=== PATIENT | male | born 1935 | race Caucasian/White ===

== ENCOUNTER → 2017-07-26 08:44 | Outpatient (CLI) | payer OTHER, SELFPAY ==
[2017-07-26 12:15] LABS: Absolute Lymphocyte Count 1.98 X10^3/ul (0.83-4.51); Absolute Neutrophil Count 4.4 X10^3/uL (2.0-7.7); Basophil# 0.03 X10^3/uL; Basophil% 0.4 % (0-1); Eosinophil# 0.25 X10^3/uL; Eosinophils% 3.3 % (0-5); Hematocrit 41.2 % (40-54); Hemoglobin 13.9 g/dl (13.0-16.5); Lymphocyte # 1.98 X10^3/ul (4.0); Lymphocyte % 26.5 % (19-41); Mean Corp Hgb Conc 33.7 g/gl (32-36); Mean Corpuscular Hgb 32.1 pg (27.0-32.0); Mean Corpuscular Volume 95.2 fL (80-94); Mean Platelet Vol. 12.8 fl (6.2-12.0); Monocyte# 0.76 X10^3/uL; Monocyte% 10.2 % (0-10); Neutrophil # 4.43 X10^3/uL (2.7-7.7); Neutrophil % 59.3 % (47-70); Platelet Count 154 K/mm3 (150-450); RBC Distribution Width CV 13.1 % (11.6-14.6); Red Blood Count 4.33 M/mm3 (4.6-6.2); White Blood Count 7.5 K/mm3 (4.4-11.0)
[2017-07-26 12:36] LABS: ALB/GLOB Ratio 1.1 RATIO (0.9-2.4); AST(SGOT) 42 U/L (15-37); Alanine Aminotransfer ALT/SGPT 59 U/L (16-61); Albumin, Serum 4.1 g/dL (3.2-5.0); Alkaline Phosphatase 64 U/L (45-117); Anion Gap 13 (5-15); BUN 25 mg/dL (7-18); BUN/Creat Ratio 15.2 RATIO (10-20); Chloride 103 mmol/L (98-107); Creatinine, Serum 1.65 mg/dL (0.70-1.30); EST Glomerular Filtration Rate 43 mL/min (>60); Est Glom Filt Rate - Afr Amer 52 mL/min (>60); Globulin 3.7 g/dL (2.2-4.2); Glucose 92 mg/dL (70-110); Magnesium 1.8 mg/dL (1.6-2.6); Potassium 3.6 mmol/L (3.5-5.1); Protein, Total 7.8 g/dL (6.4-8.2); Sodium Level 139 mmol/L (136-145); T4 Free Direct 0.91 ng/dL (0.76-1.46); Thyroid Stim Hormone (TSH) 1.26 uIU/mL (0.358-3.74); Uric Acid 8.3 mg/dL (3.5-7.2)
[2017-07-26 12:39] LABS: POSITIVE COUNT NO; POSITIVE DIFFERENTIAL NO; POSITIVE MORPHOLOGY NO
== END ==
PROVIDERS: Family Provider Family Medicine; PCP Family Medicine; Visit Provider Family Medicine
DX: I12.9 Hypertensive chronic kidney disease with stage 1 through stage 4 chronic kidney disease, or unspecified chronic kidney disease (principal); N18.9 Chronic kidney disease, unspecified; E79.0 Hyperuricemia without signs of inflammatory arthritis and tophaceous disease; E83.42 Hypomagnesemia
CPT/HCPCS: 36415; 80053; 83735; 84439; 84443; 84550; 85025

== ENCOUNTER → 2017-09-13 15:08 | Outpatient (CLI) | payer OTHER, SELFPAY ==
[2017-09-13 18:11] LABS: Anion Gap 12 (5-15); BUN 46 mg/dL (7-18); BUN/Creat Ratio 19.2 RATIO (10-20); Calcium,Total 8.9 mg/dL (8.5-10.1); Chloride 107 mmol/L (98-107); Creatinine, Serum 2.39 mg/dL (0.70-1.30); EST Glomerular Filtration Rate 28 mL/min (>60); Est Glom Filt Rate - Afr Amer 34 mL/min (>60); Glucose 89 mg/dL (74-106); Potassium 3.4 mmol/L (3.5-5.1); Sodium Level 140 mmol/L (136-145); T4 Free Direct 1.04 ng/dL (0.76-1.46); Thyroid Stim Hormone (TSH) 1.36 uIU/mL (0.358-3.74)
== END ==
PROVIDERS: Family Provider Family Medicine; PCP Family Medicine; Visit Provider Family Medicine
DX: N18.9 Chronic kidney disease, unspecified (principal); G25.2 Other specified forms of tremor
CPT/HCPCS: 36415; 80048; 84439; 84443

== ENCOUNTER → 2017-09-19 15:51 | Outpatient (CLI) | payer OTHER, SELFPAY ==
[2017-09-19 18:08] LABS: Anion Gap 9 (5-15); BUN 39 mg/dL (7-18); Calcium,Total 8.9 mg/dL (8.5-10.1); Chloride 108 mmol/L (98-107); Creatinine, Serum 1.77 mg/dL (0.70-1.30); EST Glomerular Filtration Rate 39 mL/min (>60); Est Glom Filt Rate - Afr Amer 48 mL/min (>60); Glucose 94 mg/dL (74-106); Potassium 3.6 mmol/L (3.5-5.1); Sodium Level 140 mmol/L (136-145)
== END ==
PROVIDERS: Family Provider Family Medicine; PCP Family Medicine; Visit Provider Family Medicine
DX: E83.42 Hypomagnesemia (principal); R19.7 Diarrhea, unspecified; E79.0 Hyperuricemia without signs of inflammatory arthritis and tophaceous disease
CPT/HCPCS: 36415; 80048

== ENCOUNTER → 2017-10-21 15:11 | Outpatient (CLI) | payer OTHER, SELFPAY ==
[2017-10-21 18:08] LABS: Vitamin B12 508 pg/mL (211-911)
[2017-10-21 18:10] LABS: Erythrocyte Sedimentation Rate 12 mm/hr (0-20)
[2017-10-21 18:48] LABS: Anion Gap 9 (5-15); BUN 24 mg/dL (7-18); BUN/Creat Ratio 14.6 RATIO (10-20); Calcium,Total 8.8 mg/dL (8.5-10.1); Chloride 105 mmol/L (98-107); Creatinine, Serum 1.64 mg/dL (0.70-1.30); EST Glomerular Filtration Rate 43 mL/min (>60); Est Glom Filt Rate - Afr Amer 52 mL/min (>60); Glucose 87 mg/dL (74-106); Magnesium 1.5 mg/dL (1.6-2.6); Potassium 3.6 mmol/L (3.5-5.1); Rheumatoid Factor < 10.0 IU/mL (<15); Sodium Level 137 mmol/L (136-145); Thyroid Stim Hormone (TSH) 1.71 uIU/mL (0.358-3.74)
[2017-10-21 19:55] LABS: Hemoglobin A1c 5.4 % (4.2-6.3)
[2017-10-23 12:08] LABS: RNP Ab 0.3 AI (0.0-0.9); Smith Ab <0.2 AI (0.0-0.9)
[2017-10-23 20:08] LABS: PROEL- A/G Ratio 1.3 (0.7-1.7); PROEL- Albumin 3.8 g/dL (2.9-4.4); PROEL- Alpha-1 Globulin 0.1 g/dL (0.0-0.4); PROEL- Alpha-2 Globulin 0.9 g/dL (0.4-1.0); PROEL- Beta Globulin 1.1 g/dL (0.7-1.3); PROEL- Gamma Globulin 0.8 g/dL (0.4-1.8); PROEL- Globulin, Total 2.9 g/dL (2.2-3.9); PROEL- TOTAL PROTEIN 6.7 g/dL (6.0-8.5)
[2017-10-24 12:24] LABS: ANTINUCLEAR ANTIBODIES DIRECT Negative (Negative)
[2017-10-24 12:25] LABS: Hep C Antibodies <0.1 s/co ratio (0.0-0.9)
== END ==
PROVIDERS: Family Provider Family Medicine; PCP Family Medicine; Visit Provider Psychiatry & Neurology Neurology
DX: N18.9 Chronic kidney disease, unspecified (principal); R20.1 Hypoesthesia of skin; R41.3 Other amnesia; T57 Toxic effect of other inorganic substances
CPT/HCPCS: 36415; 80048; 82607; 82746; 83036; 83735; 84165; 84443; 85652; 86038; 86235; 86431; 86803

== ENCOUNTER → 2017-10-30 14:42 | Outpatient (CLI) | payer MEDICARE, SELFPAY ==
--- NOTE | 2017-10-30 14:46 | CT_ITS ---
STUDY: CT BRAIN WITHOUT CONTRAST REASON FOR EXAM: Male, 82 years old. Memory loss RADIATION DOSAGE (If Supplied By Facility): CTDIvol = ( 60.81 ) mGy, DLP = ( 1158.30 ) mGycm TECHNIQUE: Transaxial CT imaging of the brain was performed without administration of intravenous contrast material. Individualized dose optimization techniques were used for this CT. COMPARISON: June 02, 2009 FINDINGS: The soft tissues are unremarkable. The osseous structures are unremarkable. There is mild cerebral atrophy with widening of the extra-axial spaces and ventricular dilatation. There are scattered areas of decreased attenuation within the white matter tracts of the supratentorial brain. The basal ganglia and thalami are unremarkable. No abnormalities are seen in the brainstem. The cerebellum is unremarkable. There are moderate vascular calcifications. There is no intracranial hemorrhage. There are no findings of acute ischemia. The visualized sinuses are unremarkable. CT/Brain/Head without Contrast IMPRESSION: No acute intracranial abnormalities. There are scattered white matter changes likely representing microvascular disease. Underlying dementia may be present. Electronically Signed: Maria A Merrill MD at 23:42 EDT Tel Direct: [phone], Service support ,
== END ==
PROVIDERS: Family Provider Family Medicine; PCP Family Medicine; Visit Provider Psychiatry & Neurology Neurology
DX: R41.3 Other amnesia (principal)
CPT/HCPCS: 70450

== ENCOUNTER → 2018-07-29 14:19 | Outpatient (CLI) | payer MEDICARE, SELFPAY ==
--- NOTE | 2018-07-29 14:45 | RAD_ITS ---
STUDY: X-RAY - LUMBAR SPINE REASON FOR EXAM: Male, 82 years old. Bilateral leg tingling and numbness. TECHNIQUE: 5 view(s) of the lumbar spine were obtained. COMPARISON: None FINDINGS: Normal lumbar lordosis. There is no substantial scoliosis. There is minimal retrolisthesis of L2 over L3 and L3 over L4. There is minimal decrease height of L1 1 and T12 vertebrae. Normal disc space heights. There is no demonstrated fracture. There is no demonstrated spondylolysis of the pars interarticulares. There is atherosclerotic calcification of the abdominal aorta without a demonstrated aneurysm. RAD/L/S Spine Min 4 Views IMPRESSION: Degenerative changes of the spine, as detailed above. Electronically Signed: Chris Segura MD at 8:36 EST Tel , Service support ,
[2018-07-29 18:05] LABS: ALB/GLOB Ratio 1.1 RATIO (0.9-2.4); AST(SGOT) 63 U/L (15-37); Alanine Aminotransfer ALT/SGPT 70 U/L (16-61); Albumin, Serum 3.8 g/dL (3.2-5.0); Alkaline Phosphatase 72 U/L (45-117); Anion Gap 9 (5-15); BUN 31 mg/dL (7-18); BUN/Creat Ratio 15.3 RATIO (10-20); Calcium,Total 8.8 mg/dL (8.5-10.1); Chloride 108 mmol/L (98-107); Creatinine, Serum 2.02 mg/dL (0.70-1.30); EST Glomerular Filtration Rate 34 mL/min (>60); Est Glom Filt Rate - Afr Amer 41 mL/min (>60); Globulin 3.5 g/dL (2.2-4.2); Glucose 93 mg/dL (74-106); Protein, Total 7.3 g/dL (6.4-8.2); Sodium Level 140 mmol/L (136-145); Thyroid Stim Hormone (TSH) 0.97 uIU/mL (0.358-3.74)
== END ==
PROVIDERS: Family Provider Family Medicine; PCP Family Medicine; Referring Provider Family Medicine; Visit Provider Family Medicine
DX: R60.9 Edema, unspecified (principal); G25.0 Essential tremor; M54.16 Radiculopathy, lumbar region
CPT/HCPCS: 36415; 72110; 80053; 84443

== ENCOUNTER → 2018-08-04 13:06 | Outpatient (CLI) | payer MEDICARE, SELFPAY ==
[2018-08-04 16:23] LABS: ALB/GLOB Ratio 1.1 RATIO (0.9-2.4); AST(SGOT) 64 U/L (15-37); Alanine Aminotransfer ALT/SGPT 76 U/L (16-61); Albumin, Serum 3.8 g/dL (3.2-5.0); Alkaline Phosphatase 71 U/L (45-117); Anion Gap 12 (5-15); BUN 31 mg/dL (7-18); Chloride 106 mmol/L (98-107); Creatinine, Serum 1.94 mg/dL (0.70-1.30); EST Glomerular Filtration Rate 35 mL/min (>60); Est Glom Filt Rate - Afr Amer 43 mL/min (>60); Globulin 3.4 g/dL (2.2-4.2); Glucose 89 mg/dL (74-106); Potassium 3.3 mmol/L (3.5-5.1); Protein, Total 7.2 g/dL (6.4-8.2); Sodium Level 143 mmol/L (136-145)
== END ==
LOC: LAB.FUTURE 06-10 03:25 → BFHLAB 01-06 09:41
PROVIDERS: Family Provider Family Medicine; PCP Family Medicine; Visit Provider Family Medicine
DX: R60.9 Edema, unspecified (principal); R94.5 Abnormal results of liver function studies; N18.9 Chronic kidney disease, unspecified
CPT/HCPCS: 36415; 80053

== ENCOUNTER 2018-12-05 11:28 | Emergency (ER) | payer MEDICARE, SELFPAY ==
[2018-12-05 11:29] VITALS: BP 156/79; PULSE 78; RESP 16; TEMP 36.9; O2SAT 95; BMI 30.1
--- NOTE | 2018-12-05 11:40 | ED.VIS.GEN ---
History of Present Illness Chief Complaint: Upper Extremity Injury Informant: Patient Onset: Today Narrative: Bomis-ebar-wwsdobrf, left thumb injury 20 minutes prior to arrival. Using a drill press with the rubber piece, finger pulled in. Tetanus more than 10 years. Baby aspirin daily. No history of similar. No paresthesias. Prior similar symptoms: No Past Medical History - Allergies and Home Meds Allergies/Adverse Reactions: Allergies No Known Allergies Allergy (Verified 12/05/18 11:31) Primary Care Physician: Mike Currie MD [Primary Care Provider] - Smoking Status: Never smoker Review of Systems All systems negative except as indicated Skin: Reports: Wounds Neurological: Denies: Numbness Physical Exam Vital Signs/Narrative: Vital Signs Temp Pulse Resp BP Pulse Ox 12/05/18 11:29 98.5 F 78 16 156/79 H 95 Inital Vital Signs reviewed: Yes General: Well nourished, Well developed, No Acute Distress Head: Normocephalic, Atraumatic ENT: Moist mucous membranes, No rhinorrhea Cardiovascular: Regular rate, Regular rhythm, No murmurs Respiratory: No distress, CTA bilaterally, Chest nontender Abdomen: Soft, Nontender, Nondistended, Normal bowel sounds Extremities: - - Left hand: Thumb examination noted missing distal aspect of the nail there is skin avulsion ulnar aspect distal tip of the finger, brisk bleeding, no bony exposure. No joint involvement. Slightly tender to palpation. Diagnostic/Tx/Re-eval Left thumb: No fracture or dislocation - Medical Decision Making Due to bleeding and tenderness, LET ointment was placed over the wound. Patient tetanus was updated. X-ray obtained reviewed by myself notes no acute bony process. Reevaluation after x-ray, bleeding controlled with ointment. Wound reevaluated, there was no laceration requiring suturing. Secondary to avulsion with initial bleeding, discussed placing silver nitrate to help with continued cauterization. Patient agreed. Performed 1 thin layer over wound with no complications. Wound care discussed with the patient. There was no subungual hematoma of the remaining nail. Patient will follow with PCP for reevaluation. ED Disposition - Plan for ED Patient: Disposition: Home or Assisted Living Diagnosis: Nailbed avulsion, Tetanus toxoid vaccination administered at current visit Instructions: ED Avulsion Nail Partial, Wound Care Referrals: Mike Currie MD [Primary Care Provider] - 1 Week Additional Instructions: Status post cauterization of partial avulsion.
[2018-12-05] MEDS: Diphth,Pertuss(Acell),Tet Vac 0.5 ML Vial IM (11:51)
--- NOTE | 2018-12-05 12:00 | RAD_ITS ---
STUDY: X-RAY - LEFT HAND, ATTENTION 1 FINGER REASON FOR EXAM: Male, 83 years old. Injury, pain TECHNIQUE: 3 view(s) of the finger were obtained. COMPARISON: None. FINDINGS: Normal metacarpal head. Normal metacarpophalangeal joint. Normal proximal phalanx. Normal middle phalanx. Normal distal phalanx. Normal proximal interphalangeal joint. Normal distal interphalangeal joint. Defect of the distal soft tissues consistent with laceration. No radiopaque foreign body. RAD/Finger(s) Min 2 Views IMPRESSION: Distal laceration but no fracture, dislocation, radiopaque foreign body. Electronically Signed: Merlin Burnett MD at 12:28 EDT Tel , Service support ,
[2018-12-05 12:34] VITALS: BP 121/67; PULSE 67; RESP 16; O2SAT 95
--- NOTE | 2018-12-05 12:35 | ED.RN ---
DISCHARGE INSTRUCTIONS GIVEN TO AND REVIEWED WITH PATIENT, PATIENT DENIES QUESTIONS OR CONCERNS AND VOICES UNDERSTANDING OF DISCHARGE INSTRUCTIONS. PT AMBULATES OUT OF ROOM WITHOUT DIFFICULTY.
== END 2018-12-05 12:41 | disposition home or self-care (01) ==
PROVIDERS: Emergency Provider Emergency Medicine; Family Provider Family Medicine; PCP Family Medicine
DX: S61.102A Unspecified open wound of left thumb with damage to nail, initial encounter (principal); Z23 Encounter for immunization; W31.89XA Contact with other specified machinery, initial encounter; Y93.89 Activity, other specified; Y92.009 Unspecified place in unspecified non-institutional (private) residence as the place of occurrence of the external cause; Y99.8 Other external cause status
CPT/HCPCS: 73140; 90471; 90715; 99282

== ENCOUNTER → 2019-04-06 | Outpatient (CLI) | payer MEDICARE, SELFPAY ==
[2019-04-06 12:38] LABS: AST(SGOT) 50 U/L (15-37); Absolute Lymphocyte Count 1.38 X10^3/uL (0.83-4.51); Absolute Neutrophil Count 3.2 X10^3/uL (2.0-7.7); Alanine Aminotransfer ALT/SGPT 59 U/L (16-61); Albumin, Serum 3.7 g/dL (3.2-5.0); Alkaline Phosphatase 73 U/L (45-117); Anion Gap 8 (5-15); BUN 24 mg/dL (7-18); BUN/Creat Ratio 13.3 RATIO (10-20); Basophil# 0.05 X10^3/uL; Basophil% 0.9 % (0-1); Calcium,Total 9.4 mg/dL (8.5-10.1); Chloride 105 mmol/L (98-107); Creatinine, Serum 1.81 mg/dL (0.70-1.30); EST Glomerular Filtration Rate 38 mL/min (>60); Eosinophil# 0.17 X10^3/uL; Eosinophils% 3.2 % (0-5); Est Glom Filt Rate - Afr Amer 46 mL/min (>60); Globulin 3.7 g/dL (2.2-4.2); Glucose 100 mg/dL (74-106); Hematocrit 40.4 % (40-54); Hemoglobin 13.7 g/dL (13.0-16.5); Lymphocyte # 1.38 X10^3/ul (4.0); Lymphocyte % 25.9 % (19-41); Magnesium 1.4 mg/dL (1.6-2.6); Mean Corp Hgb Conc 33.9 g/dL (32-36); Mean Corpuscular Hgb 32.4 pg (27.0-32.0); Mean Corpuscular Volume 95.5 fL (80-94); Mean Platelet Vol. 12.6 fl (6.2-12.0); Monocyte# 0.55 X10^3/uL; Monocyte% 10.3 % (0-10); NRBC Flagged by Analyzer 0 % (0-5); Neutrophil # 3.15 X10^3/uL (2.7-7.7); Neutrophil % 59.3 % (47-70); Platelet Count 132 K/mm3 (150-450); Potassium 3.5 mmol/L (3.5-5.1); Protein, Total 7.4 g/dL (6.4-8.2); RBC Distribution Width CV 12.4 % (11.6-14.6); RBC Distribution Width SD 43.8 fl (35.1-43.9); Red Blood Count 4.23 M/mm3 (4.6-6.2); Sodium Level 138 mmol/L (136-145); T4 Free Direct 0.74 ng/dL (0.76-1.46); Thyroid Stim Hormone (TSH) 2.19 uIU/mL (0.358-3.74); Uric Acid 8.7 mg/dL (3.5-7.2); White Blood Count 5.3 K/mm3 (4.4-11.0)
[2019-04-06 12:48] LABS: Hemoglobin A1c 5.4 % (4.2-6.3)
== END | disposition home or self-care (01) ==
LOC: BFHLAB 09:21
PROVIDERS: Family Provider Family Medicine; PCP Family Medicine; Visit Provider Family Medicine
DX: E78.5 Hyperlipidemia, unspecified (principal); I10 Essential (primary) hypertension; E79.0 Hyperuricemia without signs of inflammatory arthritis and tophaceous disease; F32.9 Major depressive disorder, single episode, unspecified; R73.01 Impaired fasting glucose
CPT/HCPCS: 36415; 80053; 83036; 83735; 84439; 84443; 84550; 85025

== ENCOUNTER → 2020-01-06 | Outpatient (CLI) | payer MEDICARE, SELFPAY ==
[2020-01-06 12:53] LABS: Absolute Lymphocyte Count 1.55 X10^3/uL (0.83-4.51); Absolute Neutrophil Count 3.8 X10^3/uL (2.0-7.7); Basophil# 0.04 X10^3/uL; Basophil% 0.6 % (0-1); Eosinophil# 0.23 X10^3/uL; Eosinophils% 3.7 % (0-5); Hematocrit 37.8 % (40-54); Hemoglobin 12.8 g/dL (13.0-16.5); Lymphocyte # 1.55 X10^3/ul (4.0); Lymphocyte % 24.8 % (19-41); Mean Corp Hgb Conc 33.9 g/dL (32-36); Mean Corpuscular Hgb 32.5 pg (27.0-32.0); Mean Corpuscular Volume 95.9 fL (80-94); Mean Platelet Vol. 12.5 fl (6.2-12.0); Monocyte# 0.66 X10^3/uL; Monocyte% 10.5 % (0-10); NRBC Flagged by Analyzer 0 % (0-5); Neutrophil # 3.76 X10^3/uL (2.7-7.7); Neutrophil % 60.1 % (47-70); Platelet Count 146 K/mm3 (150-450); RBC Distribution Width CV 13.2 % (11.6-14.6); Red Blood Count 3.94 M/mm3 (4.6-6.2); White Blood Count 6.3 K/mm3 (4.4-11.0)
[2020-01-06 13:25] LABS: AST(SGOT) 35 U/L (15-37); Alanine Aminotransfer ALT/SGPT 45 U/L (16-61); Albumin, Serum 3.6 g/dL (3.2-5.0); Alkaline Phosphatase 70 U/L (45-117); Anion Gap 10 (5-15); BUN 27 mg/dL (7-18); BUN/Creat Ratio 14.4 RATIO (10-20); Calcium,Total 8.8 mg/dL (8.5-10.1); Chloride 105 mmol/L (98-107); Creatinine, Serum 1.87 mg/dL (0.70-1.30); EST Glomerular Filtration Rate 37 mL/min (>60); Est Glom Filt Rate - Afr Amer 45 mL/min (>60); Globulin 3.7 g/dL (2.2-4.2); Glucose 107 mg/dL (74-106); Magnesium 1.5 mg/dL (1.6-2.6); Potassium 3.2 mmol/L (3.5-5.1); Protein, Total 7.3 g/dL (6.4-8.2); Sodium Level 138 mmol/L (136-145); T4 Free Direct 0.94 ng/dL (0.76-1.46); Thyroid Stim Hormone (TSH) 1.44 uIU/mL (0.358-3.74)
== END | disposition home or self-care (01) ==
LOC: BFHLAB 09:21
PROVIDERS: Family Provider Family Medicine; PCP Family Medicine; Visit Provider Family Medicine
DX: I10 Essential (primary) hypertension (principal); R53.83 Other fatigue; E78.5 Hyperlipidemia, unspecified; E83.42 Hypomagnesemia; E79.0 Hyperuricemia without signs of inflammatory arthritis and tophaceous disease
CPT/HCPCS: 36415; 80053; 83735; 84439; 84443; 84481; 84550; 85025

== ENCOUNTER → 2020-07-22 15:01 | Outpatient (CLI) | payer MEDICARE, SELFPAY ==
[2020-07-22 17:21] LABS: Absolute Lymphocyte Count 1.86 X10^3/uL (0.83-4.51); Absolute Neutrophil Count 3.5 X10^3/uL (2.0-7.7); Basophil# 0.06 X10^3/uL; Basophil% 0.9 % (0-1); Eosinophil# 0.21 X10^3/uL; Eosinophils% 3.3 % (0-5); Hematocrit 40.1 % (40-54); Hemoglobin 13.5 g/dL (13.0-16.5); Lymphocyte # 1.86 X10^3/ul (4.0); Lymphocyte % 29.4 % (19-41); Mean Corp Hgb Conc 33.7 g/dL (32-36); Mean Corpuscular Hgb 32.1 pg (27.0-32.0); Mean Corpuscular Volume 95.5 fL (80-94); Mean Platelet Vol. 12.4 fl (6.2-12.0); Monocyte# 0.72 X10^3/uL; Monocyte% 11.4 % (0-10); NRBC Flagged by Analyzer 0 % (0-5); Neutrophil # 3.45 X10^3/uL (2.7-7.7); Neutrophil % 54.5 % (47-70); Platelet Count 152 K/mm3 (150-450); RBC Distribution Width CV 12.8 % (11.6-14.6); White Blood Count 6.3 K/mm3 (4.4-11.0)
[2020-07-22 17:56] LABS: Anion Gap 7 (5-15); BUN 27 mg/dL (7-18); BUN/Creat Ratio 15.7 RATIO (10-20); Chloride 107 mmol/L (98-107); Creatinine, Serum 1.72 mg/dL (0.70-1.30); EST Glomerular Filtration Rate 41 mL/min (>60); Est Glom Filt Rate - Afr Amer 49 mL/min (>60); Glucose 122 mg/dL (74-106); Potassium 3.7 mmol/L (3.5-5.1); Sodium Level 139 mmol/L (136-145); Thyroid Stim Hormone (TSH) 0.87 uIU/mL (0.358-3.74)
== END ==
PROVIDERS: PCP Family Medicine; Visit Provider Family Medicine
DX: D69.6 Thrombocytopenia, unspecified (principal); R73.01 Impaired fasting glucose; I12.9 Hypertensive chronic kidney disease with stage 1 through stage 4 chronic kidney disease, or unspecified chronic kidney disease; N18.9 Chronic kidney disease, unspecified
CPT/HCPCS: 36415; 80048; 84443; 85025

== ENCOUNTER → 2021-01-16 11:12 | Outpatient (CLI) | payer MEDICARE, SELFPAY ==
[2021-01-16 12:18] LABS: Absolute Lymphocyte Count 1.74 X10^3/uL (0.83-4.51); Absolute Neutrophil Count 4.2 X10^3/uL (2.0-7.7); Basophil# 0.05 X10^3/uL; Basophil% 0.7 % (0-1); Eosinophil# 0.15 X10^3/uL; Eosinophils% 2.2 % (0-5); Hematocrit 40.6 % (40-54); Hemoglobin 13.8 g/dL (13.0-16.5); Lymphocyte # 1.74 X10^3/ul (0.83-4.51); Lymphocyte % 25.7 % (19-41); Mean Corpuscular Hgb 31.8 pg (27.0-32.0); Mean Corpuscular Volume 93.5 fL (80-94); Mean Platelet Vol. 12.6 fl (6.2-12.0); Monocyte# 0.61 X10^3/uL; NRBC Flagged by Analyzer 0 % (0-5); Neutrophil # 4.18 X10^3/uL (2.7-7.7); Platelet Count 157 K/mm3 (150-450); RBC Distribution Width CV 12.9 % (11.6-14.6); RBC Distribution Width SD 44.7 fl (35.1-43.9); Red Blood Count 4.34 M/mm3 (4.6-6.2); White Blood Count 6.8 K/mm3 (4.4-11.0)
[2021-01-16 13:09] LABS: ALB/GLOB Ratio 1.1 RATIO (0.9-2.4); AST(SGOT) 38 U/L (15-37); Alanine Aminotransfer ALT/SGPT 42 U/L (16-61); Albumin, Serum 3.9 g/dL (3.2-5.0); Alkaline Phosphatase 67 U/L (45-117); Anion Gap 9 (5-15); BUN 22 mg/dL (7-18); BUN/Creat Ratio 13.3 RATIO (10-20); Calcium,Total 8.7 mg/dL (8.5-10.1); Chloride 105 mmol/L (98-107); Cholesterol 148 mg/dL (200); Creatinine, Serum 1.66 mg/dL (0.70-1.30); EST Glomerular Filtration Rate 42 mL/min (>60); Est Glom Filt Rate - Afr Amer 51 mL/min (>60); Globulin 3.5 g/dL (2.2-4.2); Glucose 100 mg/dL (74-106); High Density Lipoprotein 39 mg/dL; Magnesium 1.7 mg/dL (1.6-2.6); Potassium 3.6 mmol/L (3.5-5.1); Protein, Total 7.4 g/dL (6.4-8.2); Sodium Level 139 mmol/L (136-145); Thyroid Stim Hormone (TSH) 1.76 uIU/mL (0.358-3.74); Triglycerides 316 mg/dL; Very Low Density Lipoprotein 63 mg/dL (5-40)
== END ==
PROVIDERS: PCP Family Medicine; Referring Provider Family Medicine; Visit Provider Family Medicine
DX: N18.9 Chronic kidney disease, unspecified (principal); D69.6 Thrombocytopenia, unspecified; E83.42 Hypomagnesemia; E78.5 Hyperlipidemia, unspecified
CPT/HCPCS: 36415; 80053; 80061; 83735; 84443; 85025

== ENCOUNTER → 2022-04-11 | Outpatient (CLI) | payer MEDICARE, SELFPAY ==
[2022-04-11 12:29] LABS: Absolute Lymphocyte Count 1.56 X10^3/uL (0.83-4.51); Absolute Neutrophil Count 4.3 X10^3/uL (2.0-7.7); Basophil# 0.04 X10^3/uL; Basophil% 0.6 % (0-1); Eosinophil# 0.19 X10^3/uL; Eosinophils% 2.8 % (0-5); Hematocrit 39.2 % (40-54); Hemoglobin 13.5 g/dL (13.0-16.5); Lymphocyte # 1.56 X10^3/ul (0.83-4.51); Lymphocyte % 23.1 % (19-41); Mean Corp Hgb Conc 34.4 g/dL (32-36); Mean Corpuscular Hgb 32.1 pg (27.0-32.0); Mean Corpuscular Volume 93.3 fL (80-94); Mean Platelet Vol. 12.1 fl (6.2-12.0); Monocyte# 0.66 X10^3/uL; Monocyte% 9.8 % (0-10); NRBC Flagged by Analyzer 0 % (0-5); Neutrophil # 4.27 X10^3/uL (2.7-7.7); Neutrophil % 63.1 % (47-70); Platelet Count 142 K/mm3 (150-450); RBC Distribution Width SD 43.9 fl (35.1-43.9); White Blood Count 6.8 K/mm3 (4.4-11.0)
[2022-04-11 12:44] LABS: AST(SGOT) 26 U/L (15-37); Alanine Aminotransfer ALT/SGPT 30 U/L (16-61); Albumin, Serum 3.7 g/dL (3.2-5.0); Alkaline Phosphatase 66 U/L (45-117); Anion Gap 10 (5-15); BUN 23 mg/dL (7-18); BUN/Creat Ratio 12.2 RATIO (10-20); Calcium,Total 9.1 mg/dL (8.5-10.1); Chloride 106 mmol/L (98-107); Cholesterol 112 mg/dL (200); Creatinine, Serum 1.88 mg/dL (0.70-1.30); EST Glomerular Filtration Rate 36 mL/min (>60); Est Glom Filt Rate - Afr Amer 44 mL/min (>60); Globulin 3.6 g/dL (2.2-4.2); Glucose 106 mg/dL (74-106); High Density Lipoprotein 39 mg/dL; Magnesium 1.5 mg/dL (1.6-2.6); Potassium 3.6 mmol/L (3.5-5.1); Protein, Total 7.3 g/dL (6.4-8.2); Sodium Level 140 mmol/L (136-145); Triglycerides 227 mg/dL; Very Low Density Lipoprotein 45 mg/dL (5-40)
== END | disposition home or self-care (01) ==
LOC: BFHLAB 09:31
PROVIDERS: PCP Family Medicine; Visit Provider Family Medicine
DX: E78.5 Hyperlipidemia, unspecified (principal); D69.9 Hemorrhagic condition, unspecified; I10 Essential (primary) hypertension
CPT/HCPCS: 36415; 80053; 80061; 83735; 85025

== ENCOUNTER → 2022-05-21 | Outpatient (CLI) | payer MEDICARE, SELFPAY | END | disposition home or self-care (01) | LOC: LAB 10:16 | PROVIDERS: PCP Family Medicine; Referring Provider Urology; Visit Provider Urology | DX: N40.3 Nodular prostate with lower urinary tract symptoms (principal) | CPT/HCPCS: 36415; 84153 ==

== ENCOUNTER 2022-06-20 13:07 | Observation (INO) | payer MEDICARE, SELFPAY ==
[2022-06-20] VITALS (17 sets, daily range): BP systolic 107–174; BP diastolic 55–85; PULSE 66–91; RESP 16–18; TEMP 36.3–37; O2SAT 91–98; BMI 32.8
--- NOTE | 2022-06-20 | IMM_PTH ---
PATIENT: TRISTON OSORIO Jr. LOC: MS3 U#:[id number] AGE/SX: 86/M ROOM: [facility] [place] RE06/20/[address]: Dr. Dylan Hein MD : 1935 BED: 1 DIS: 06/21/2022 SPEC #: [id number] RECD: 06/22/22 12:41 STATUS: MICHAEL RELiz #: [id number] MATTHEW: 06/20/22 00:[address]: Dylan Hein DEPT: IMMUNOHISTOCHEMISTRY RECD BY: Nori Gallegos ENTERED: 06/22/22 12:43 SP TYPE: IMMUNO OTHR DR: Dr. Mike Currie MD Tissues: G - Prostate, NOS Procedures: CK20 (add) CK5-6 (add) CK7 (add) CK8 (add) Pankeratin (initial) P40 (add) CD44 (add) PSAP (add) PHYSICIAN & INSTITUTION [place] [id number] SPECIMEN INFORMATION: Tissue Source: G - Prostate and bladder tissue, transurethral resection Clinical Info: BPH, elevated PSA Specimen Number: [id number] G4 CPT code: 70703, 35664 x7 METHODOLOGY: Deparaffinized sections of prefer/formalin-fixed tissue or PAP/DQ stained slides are incubated with monoclonal/polyclonal antibodies/oligonucleotide probes. Localization is made via biotin free immunoperoxidase method. Appropriate controls are performed and reacted as expected. Results on target cell population are indicated in the following table: RESULTS: ANTIBODY / CLONE RESULT Block G4 AE1-3 (AE1/AE3/PCK26) positive CK7 (OV-TL12/30) negative CK8 (77jjbrU39) positive CK20 (KS20.8) negative PSAP (PASE/4LJ) positive anti-CD44 (SP37) positive, focal CK5-6 (D5 & 1684) negative P40 (BC28) negative These tests were developed and their performance characteristics determined by [facility]. They may not have been cleared or approved by the U.S. Food and Drug Administration. The FDA has determined that such clearance or approval is not necessary. The above immunohistochemical/dualISH markers are ordered and reviewed by the Pathologist. INTERPRETATION: G. Prostate and bladder tissue, transurethral resection: Prostatic adenocarcinoma. SJ:davy 06/27/2022 Case has been reviewed in consultation with Dr. Martin who concurs with the above diagnosis. IDC:AM
[2022-06-20] MEDS: Lactated Ringers 1,000 ML 15 ML IV ×2 (09:57→15:47)
--- NOTE | 2022-06-20 11:03 | US_ITS ---
STUDY: ULTRASOUND GUIDED PROSTATE BIOPSY. REASON FOR EXAM: Male, 86 years old. US GUIDED PROSTATE BX TECHNIQUE: 11 grayscale transrectal intraoperative ultrasound images from prostate biopsy were submitted for assessment. FINDINGS: Images from patient''s ultrasound-guided prostate biopsy were submitted for interpretation. Please note that biopsy was performed by urology and I was not present for the procedure. Prostate measurements: 4.1 x 4.0 x 3.6 cm (width, length, height). Prostate volume: 30.6 mL An 18-gauge biopsy needle was utilized per tech note. A total of 6 samples were obtained per region. US/Intraoperative Ultrasound IMPRESSION: Ultrasound guided prostate biopsy. Please see intraoperative report for additional findings. Electronically Signed: Johnnie Cavazos, at 13:18 EST ,
--- NOTE | 2022-06-20 11:25 | PROSBIL_PTH ---
PATIENT: TRISTON OSORIO Jr. LOC: MS3 U#:[id number] AGE/SX: 86/M [place] [facility] [place]06/20/[address]: Dr. Dylan Hein MD : 1935 BED: 1 DIS: 06/21/2022 SPEC #: [id number] RECD: 06/20/22 16:36 STATUS: MICHAEL GOMES #: [id number] MATTHEW: 06/20/22 11:[address]: Dylan Hein DEPT: SURGICAL PATHOLOGY RECD BY: Leydi Smith ENTERED: 06/21/22 10:21 SP TYPE: PROST BX OTHR DR: Dr. Mike Currie MD Tissues: A - PROSTATE LEFT B - PROSTATE LEFT C - PROSTATE LEFT D - PROSTATE RIGHT E - PROSTATE RIGHT F - PROSTATE RIGHT G - Prostate, NOS Procedures: PROSTATE BX Surgery Specimen Level IV HEADER OPERATION: Cysto, TUR prostate, Olympus PRE-OP DIAGNOSIS: BPH, elevated PSA TISSUE SUBMITTED: A - Left base, B - Left middle, C - Left apex, D - Right base, E - Right middle, F - Right apex, G - Bladder and prostate tissue MICROSCOPIC DIAGNOSIS A. Left prostate, base, core biopsy: Prostatic adenocarcinoma. Palermo grade: 4+3=7 Number of cores involved: 1/1 Proportion of tissue involved: ~90% Perineural invasion: Present, focal. Greatest tumor length: 1.1 cm B. Left prostate, middle, core biopsy: Prostatic adenocarcinoma. Mark grade: 3+4=7 Number of cores involved: 1/1 Proportion of tissue involved: 75% Perineural invasion: Present, focal. Greatest tumor length: 0.9 cm C. Left prostate, apex, core biopsy: Prostatic adenocarcinoma. Palermo grade: 3+3=6 Number of cores involved: 1/1 Proportion of tissue involved: ~25% Perineural invasion: Present, focal. Greatest tumor length: 0.3 cm D. Right prostate, base, core biopsy: Prostatic adenocarcinoma. Mark grade: 3+4=7 Number of cores involved: 1/1 Proportion of tissue involved: 100% Perineural invasion: Present, frequent. Greatest tumor length: 1.2 cm E. Right prostate, middle, core biopsy: Prostatic adenocarcinoma. Mark grade: 4+3=7 Number of cores involved: 1/1 Proportion of tissue involved: ~80% Perineural invasion: Present, focal. Greatest tumor length: 1.2 cm F. Right prostate, apex, core biopsy: Prostatic adenocarcinoma. Palermo grade: 4+3=7 Number of cores involved: 1/1 Proportion of tissue involved: >95% Perineural invasion: Present, focal. Greatest tumor length: 1.4 cm G. Prostate and bladder tissue, transurethral resection: Prostatic adenocarcinoma See cancer summary in the comment section. SJ:davy 06/22/2022 COMMENT PROSTATE CANCER (TUR) SUMMARY: Procedure - transurethral resection of prostate and bladder Specimen size ? acinar adenocarcinoma Histologic type ? grade group 5 (Palermo score 5+4=9) Tertiary pattern ? Mark grade 3 is also noted. Tumor Quantitation (TUR specimens): Estimated percentage of prostatic tissue involved by tumor - ~20% Periprostatic fat invasion ? not applicable Seminal vesicle invasion - not applicable Lymphvascular invasion ? not present Perineural invasion ? not identified Additional pathologic findings ? benign prostatic hyperplasia. Treatment effect - not applicable The above summary is in compliance with [employer] [place] [employer] (CAP) Cancer Protocols Checklist and [place] Joint Committee on Cancer (AJCC), Staging Manual, 8th Ed. Immunohistochemistry ([id number]) supports the above diagnosis. Case has been reviewed in consultation with Dr. Martin who concurs with the above diagnosis. IDC:AM MICROSCOPIC DESCRIPTION Slides are reviewed. GROSS DESCRIPTION A - Received is one container designated prostate, left base. The specimen consists of one elongated fragment of light carrasco-white soft tissue measuring 1.5 cm in length and 0.1 cm in diameter. The specimen is totally submitted in one cassette. B - Received is one container designated prostate, left middle. The specimen consists of one elongated fragment of light carrasco-white soft tissue measuring 1.5 cm in length and 0.1 cm in diameter. The specimen is totally submitted in one cassette. C - Received is one container designated prostate, left apex. The specimen consists of one elongated fragment of light carrasco-white soft tissue measuring 1 cm in length and 0.1 cm in diameter. The specimen is totally submitted in one cassette. D - Received is one container designated prostate, right base. The specimen consists of one elongated fragment of light carrasco-white soft tissue measuring 1.5 cm in length and 0.1 cm in diameter. The specimen is totally submitted in one cassette. E - Received is one container designated prostate, right middle. The specimen consists of one elongated fragment of light carrasco-white soft tissue measuring 1.5 cm in length and 0.1 cm in diameter. The specimen is totally submitted in one cassette. F - Received is one container designated prostate, right apex. The specimen consists of one elongated fragment of light carrasco-white soft tissue measuring 1.5 cm in length and 0.1 cm in diameter. The specimen is totally submitted in one cassette. G - Received is one container labeled with the patient's name and designated prostate and bladder tissue. The specimen consists of multiple irregular fragments of pink-carrasco, rubbery, soft tissue that in aggregate weigh 7.3 gm and measure in aggregate 5 x 5 x 0.6 cm. The entire specimen is submitted in six cassettes. / AM:davy 06/21/2022 TC:0 CPT: 51623, G0146
[2022-06-20] MEDS: Cefazolin 2 GM in 0.9% Normal Saline 100 ML IV (11:55)
--- NOTE | 2022-06-20 13:12 | OP.PCM_ITS ---
Report of Operation Date of Procedure: 06/20/22 Pre-Operative Diagnosis: Elevated PSA and BPH with obstruction Post-Operative Diagnosis: The same Surgery/Procedure Performed:: Transurethral resection of prostate, ultrasound- guided biopsy of the prostate Description of Surgical Findings:: In the preoperative setting I discussed with the patient how the surgery would be done with expect afterwards. We discussed how a prostate resection is done and we discussed the risk of the surgery including, bleeding, infection, retrograde ejaculation, changes with ejaculation or intercourse,. We discussed the possibility that the resection of the prostate may not alleviate his urinary symptoms. We discussed the small risk of developing scar tissue along the urethral channel and strictures. We also discussed the chance of the prostate could grow back and he may need further surgery or treatment in the future for prostate problems. Patient was taken back to the operating room, timeout procedure was performed, he was identified and marked and placed on the operating room table. He underwent general anesthesia. he was placed in dorsal lithotomy position with the legs in stirrups making sure to proper sleep pad all pressure points. The patient had undergone an enema in preparation for the biopsy and also was on antibiotics preloaded IV. I then introduced a ultrasound probe into the rectum with digital guidance and a bimanual exam of the prostate was performed. The prostate was about 30gm in size. Then using the ultrasound probe the prostate was imaged with three- dimensional ultrasound imaging and the prostate was apical distance was measured with was measured in its height was measured calculated volume was then performed the prostate measured about in size. We then performed a biopsy of the prostate starting at the right base biopsy was done medially and laterally we then moved to the right mid of the prostate biopsy was performed medially and laterally obtaining good tissue from the middle transition zone and also the peripheral zone. We went to the apex of the prostate and also obtained a biopsy medially and laterally from the transition zone in the apex of the prostate and peripheral zone. We then switched the probe and went to the left side of the prostate into the right base of the prostate with a biopsy medially and laterally in the peripheral zone in the transition zone, we went to the mid prostate on the left side and that a biopsy in the transition zone and peripheral zone medially and laterally and then finally we went to the apex and then a biopsy medially and laterally in the peripheral zone and transition zone. After the standard biopsy was performed and the ultrasound probe was removed. He was placed in dorsolithotomy position. Penis and testicles were prepped and draped in usual sterile fashion. Went into the bladder using the visual obturator with a resectoscope. Once inside the bladder identified the right and left ureteral orifice. I then identified the prostate and the anatomy of the prostate. I marked out the area of the sphincter and the verumontanum was identified. I then proceeded with the prostate resection first resected the median lobe. And then resected the right lobe of the prostate. Then to resect the left lobe of the prostate. I then resected the apical tissue of the prostate. This was a complete resection of all obstructive tissue to improve voiding and relieve obstruction. I then made sure that there was no injury to the sphincter or the verumontanum was still intact. At the end of the resection all the chips were Ellik out of the bladder. I then identified the left and right ureteral orifice and these were confirmed to be in good position and effluxing and not injured. The resectoscope was removed, a 22 Vietnamese catheter was placed into the bladder on continuous irrigation. And the urine was fairly light pink color and draining normally. He was taken back to the PACU in good condition. Surgeon: Dylan Hein Type of Anesthesia: General Drains: 22fr way kumari Admit VTE Documentation VTE Present on Admission: No VTE Mechan Device Prophylaxis: SCD's
--- NOTE | 2022-06-20 13:12 | DCINST_ITS ---
Discharge Instructions Diet Discharge Diet: No restrictions and Light diet - advance as tolerated Activity Discharge Activity: No Restrictions Dressing / Incision Call your doctor if your incision/area has: Sudden Increased Bleeding Follow Up Care Please Follow Up With: Dylan Hein MD When: call for appt. Test Results: Test results from this visit will be discussed in further detail at your follow- up appointment, if applicable. Discharge Plan Admission Primary Reason for Your Visit: turp, prostate biopsy Attending Provider: Dylan Hein Primary Care Provider: Mike Currie Discharge Orders/Prescriptions Prescriptions: New ciprofloxacin HCl [Cipro] 500 mg tablet 500 mg PO BID Qty: 14 0RF Continued simvastatin 40 MG tablet 40 mg PO QODAY Label Comments: CHOLESTEROL losartan-hydrochlorothiazide [Hyzaar] 1 TAB tablet 1 tab PO DAILY Label Comments: BLOOD PRESSURE tamsulosin 0.4 MG capsule 0.4 mg PO DAILY Label Comments: PROSTATE aspirin 81 MG tablet,chewable 81 mg PO DAILY@0800 Label Comments: HEART HEALTH escitalopram oxalate 20 MG tablet 20 mg PO QHS Label Comments: DEPRESSION Metamucil Fiber Singles 1 PACKET powder in packet 1 packet PO QHS Label Comments: CONSTIPATION omeprazole 40 mg Capsule,Delayed Release(Dr/Ec) 40 mg PO DAILY propranolol 10 mg Tablet 10 mg PO DAILY mirtazapine 15 mg Tablet 15 mg PO QHS finasteride 5 mg Tablet 5 mg PO DAILY magnesium oxide 400 mg magnesium Capsule 400 mg PO QHS Referrals / Follow Up: Dylan Hein MD [Med Staff - Active Staff] - Mike Currie MD [Primary Care Provider] - Disposition Disposition (needs filled in before D/C Order can be placed): Home, Self Care
--- NOTE | 2022-06-20 13:12 | PCM.HP.STD ---
HPI - General General Date of Service: 06/20/22 Chief Complaint: BPH with obstruction elevated PSA HPI Narrative TRISTON OSORIO, is a 86 M who presents for prostate biopsy and transurethral section of prostate [facility] Medical History (Updated 06/15/22 @ 09:30 by Radha Gaytan) Ambulates with cane Anxiety Arthritis Back pain Cardiology follow-up encounter Depression Difficulty swallowing Gastric reflux History of echocardiogram History of edema History of stress test Hypertension Injury of head and neck Low iron Non-smoker Prostate disease Shortness of breath on exertion Syncope Wears glasses Home Medications aspirin 81 mg chewable tablet 81 mg PO DAILY@0800 06/14/15 [History Last Taken 06/11/22] escitalopram oxalate 20 mg tablet 20 mg PO QHS 06/14/15 [History Last Taken 06/19/22] losartan 100 mg-hydrochlorothiazide 25 mg tablet (Hyzaar) 1 tab PO DAILY 06/14/15 [History Last Taken 06/19/22] psyllium husk (aspartame) 3.4 gram oral powder packet (Metamucil Fiber Singles) 1 packet PO QHS 06/14/15 [History Last Taken 06/19/22] simvastatin 40 mg tablet 40 mg PO QODAY 06/14/15 [History Last Taken 06/19/22] tamsulosin 0.4 mg capsule 0.4 mg PO DAILY 06/14/15 [History Last Taken 06/19/22] finasteride 5 mg tablet 5 mg PO DAILY 06/15/22 [History Last Taken 06/19/22] magnesium oxide 400 mg PO QHS 06/15/22 [History Last Taken 06/19/22] mirtazapine 15 mg tablet 15 mg PO QHS 06/15/22 [History Last Taken 06/19/22] omeprazole 40 mg capsule,delayed release 40 mg PO DAILY 06/15/22 [History Last Taken 06/20/22] propranolol 10 mg tablet 10 mg PO DAILY 06/15/22 [History Last Taken 06/20/22] ciprofloxacin HCl 500 mg tablet (Cipro) 500 mg PO BID #14 tabs 06/20/22 [Rx Last Taken Unknown] Allergy/AdvReac Type Severity Reaction Status Date / Time No Known Allergies Allergy Verified 06/15/22 09:14 Surgical History (Updated 06/15/22 @ 09:30 by Radha Schriber) Hx of appendectomy Hx of arthroscopic knee surgery Hx of colonoscopy Hx of cystoscopy Hx of hemorrhoidectomy Hx of left cataract extraction Hx of right cataract extraction Hx of umbilical hernia repair Social History Smoking Status: Never smoker Vital Signs Vital Signs Vital Signs: 06/20/22 09:58 06/20/22 09:58 Temperature 97.9 F Temperature Source Temporal Pulse Rate 68 Respiratory Rate 18 Respiratory Pattern Normal Blood Pressure 119/64 Blood Pressure Mean 82 Blood Pressure Source Monitor Blood Pressure Position Sitting Blood Pressure Location Right Arm Pulse Ox 95 Oxygen Delivery Method Room Air Weight Weight: 83.915 kg Body Mass Index (BMI) 32.8
[2022-06-20] MEDS: Tamsulosin HCl 0.4 MG Capsule PO (17:51)
[2022-06-20] MEDS: 0.9% Normal Saline 1,000 ML 125 ML IV (17:53)
[2022-06-20] MEDS: HYDROcodone Bitartrate/Apap 5/325 Tablet PO ×2 (19:49→21:37)
[2022-06-20] MEDS: Ciprofloxacin 400 MG/200 ML BAG 200 MG IV (19:50)
[2022-06-20] MEDS: Docusate Sodium 100 MG Capsule 200 MG PO (21:38)
[2022-06-20] MEDS: Psyllium 1 PACKET PO (21:38)
[2022-06-20] MEDS: Mirtazapine 15 MG Tablet PO (21:38)
[2022-06-20] MEDS: Escitalopram Oxalate 20 MG Tablet PO (21:38)
[2022-06-20] MEDS: Magnesium Chloride 64 MG Delay Rel.Tablet 128 MG PO (21:38)
[2022-06-21 02:02] VITALS: BP 129/76; PULSE 67; RESP 18; TEMP 36.4; O2SAT 96
[2022-06-21 02:07] VITALS: BMI 32.8
[2022-06-21] MEDS: 0.9% Normal Saline 1,000 ML 125 ML IV (02:10)
[2022-06-21 04:59] VITALS: BP 119/57; PULSE 70; RESP 18; TEMP 36.4; O2SAT 95
[2022-06-21 05:03] VITALS: BMI 32.8
[2022-06-21 07:33] VITALS: O2SAT 95
[2022-06-21 09:00] VITALS: BP 134/77; PULSE 85; RESP 18; TEMP 36.8; O2SAT 93
[2022-06-21] MEDS: Ciprofloxacin 400 MG/200 ML BAG 200 MG IV (09:03)
[2022-06-21] MEDS: Docusate Sodium 100 MG Capsule 200 MG PO (09:05)
[2022-06-21] MEDS: Finasteride 5 MG Tablet PO (09:06)
[2022-06-21] MEDS: hydroCHLOROthiazide 25 MG Tablet PO (09:06)
[2022-06-21] MEDS: Propranolol 10 MG Tablet PO (09:06)
[2022-06-21] MEDS: Pantoprazole Sodium 40 MG Tablet PO (09:06)
[2022-06-21] MEDS: Losartan Potassium 100 MG Tablet PO (09:06)
[2022-06-21 09:33] VITALS: BMI 32.8
--- NOTE | 2022-06-21 09:35 | PN.URO_ITS ---
Subjective Subjective s/p turp doign well d/c [facility] today Objective Data Objective Data Vital Signs: Vital Signs Temp Pulse Resp BP Pulse Ox O2 Del Method O2 Flow Rate 98.2 F 85 18 134/77 H 93 Room Air 3 06/21/22 09:00 06/21/22 09:00 06/21/22 09:00 06/21/22 09:00 06/21/22 09:00 06/21/22 09:00 06/21/22 07:33 Oxygen Flow Rate (L/min) 3 Oxygen Delivery Method Room Air Weight: 83.915 kg Body Mass Index (BMI) 32.8 Intake & Output: Intake and Output for Last 24 Hours 06/19/22 06/20/22 06/21/22 23:59 23:59 23:59 Intake Total 2060 / 2060 1500 / 1500 Output Total 850 / 850 900 / 900 Balance 1210 / 1210 600 / 600
[2022-06-21 13:33] VITALS: BMI 32.8
[2022-06-21] MEDS: HYDROcodone Bitartrate/Apap 5/325 Tablet PO (13:49)
[2022-06-21 14:59] VITALS: BP 144/74; PULSE 80; RESP 18; TEMP 36.8; O2SAT 93
== END 2022-06-21 15:01 | disposition home or self-care (01) ==
LOC: SDC 16:41 → MS3 16:41
PROVIDERS: Admitting Provider Urology; PCP Family Medicine; Referring Provider Urology; Visit Provider Urology
PROC: (CPT 52601; principal; 2022-06-20 11:15)
PROC: (CPT 55700; 2022-06-20 11:15)
DX: C61 Malignant neoplasm of prostate (principal); N40.1 Benign prostatic hyperplasia with lower urinary tract symptoms; Z79.82 Long term (current) use of aspirin; I10 Essential (primary) hypertension; N13.8 Other obstructive and reflux uropathy; Z79.899 Other long term (current) drug therapy; R35.0 Frequency of micturition; F41.9 Anxiety disorder, unspecified; M19.90 Unspecified osteoarthritis, unspecified site; F32.A Depression, unspecified; R13.10 Dysphagia, unspecified; K21.9 Gastro-esophageal reflux disease without esophagitis; R06.02 Shortness of breath
CPT/HCPCS: 52601; 55700; 76998; 88305; 88341; 88342; 93005; 96361; 96365; 96366; 99218; J7030; J7120; G0378; G0416; J0744; J2405

== ENCOUNTER → 2022-07-23 | Outpatient (CLI) | payer MEDICARE, SELFPAY ==
--- NOTE | 2022-07-23 08:15 | CT_ITS ---
STUDY: CT ABDOMEN AND PELVIS WITH CONTRAST REASON FOR EXAM: Male, 86 years old. PROSTATE CA RADIATION DOSAGE (If Supplied By Facility): CTDIvol = ( 17.81 ) mGy, DLP = ( 1016.07 ) mGycm TECHNIQUE: Transaxial images were obtained from the dome of the diaphragm to the symphysis pubis without oral contrast. IV 100mL Isovue-300 was administered. Sagittal and coronal images were reconstructed. Individualized dose optimization techniques were used for this CT. COMPARISON: June 14, 2015 FINDINGS: The visualized lung bases are unremarkable. The visualized portions of the heart are within normal limits. Large intrathoracic hiatal hernia Mild nonspecific fatty infiltrated liver without mass or bile duct dilatation . Contracted thick-walled gallbladder without calcified stones or pericholecystic edema.. Normal spleen. Normal pancreas. Normal bilateral adrenal glands. Normal right kidney. Normal left kidney. Normal visualized stomach. Normal small intestine. Mild scattered diverticular changes of the colon without evidence for acute diverticulitis. The appendix is visualized and appears normal. Atherosclerotic changes of the aorta without evidence for aneurysm. Normal inferior vena cava. Normal retroperitoneum. Normal urinary bladder. Nonspecific prominence of the prostate upon the base of the bladder which is incompletely mildly Small fat-containing left inguinal hernia. Lumbar spine demonstrates mild degenerative change CT/Abdomen/Pelvis W IV Cont ONLY IMPRESSION: Large intrathoracic hiatal hernia. 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 No evidence for hepatic metastasis retroperitoneal adenopathy or bone metastases in patient with known prostate Electronically Signed: Philip Edwards MD at 22:10 EST ,
[2022-07-23 09:00] LABS: CREATININE FINGERSTICK 1.1 mg/dL (0.70-1.30); EGFR FINGERSTICK > 60.0000 mL/min (>60)
== END | disposition home or self-care (01) ==
LOC: CT 08:14
PROVIDERS: PCP Family Medicine; Visit Provider Urology
DX: C61 Malignant neoplasm of prostate (principal)
CPT/HCPCS: 74177; Q9967

== ENCOUNTER → 2022-07-31 | Outpatient (CLI) | payer MEDICARE, SELFPAY ==
--- NOTE | 2022-07-31 08:22 | NM_ITS ---
CLINICAL: 86-year-old male with history of primary prostate carcinoma. WHOLE BODY 99m Tc MDP RADIONUCLIDE BONE SCINTIGRAPHY COMPARISON: CT of the abdomen-pelvis report 07/23/2022 FINDINGS: Following the intravenous administration of 26.1 mCi of 99m Tc MDP, whole body bone images reveal: 1. Increased radiopharmaceutical concentration is defined in the acromioclavicular and sternoclavicular compartments of both shoulders, the 10th through 12th thoracic vertebra, the bilateral knees. 2. The remaining skeletal structures are scintigraphically unremarkable with normal-appearing renal images and urinary bladder activity identified. NM/Bone Scan Whole Body IMPRESSION: 1. The increase in radiopharmaceutical defined in the bilateral shoulders, the lower thoracic spine and right-left knee articulations is commensurate with degenerative arthrosis. 2. There is no definitive scintigraphic evidence of diffuse axial skeletal metastatic disease on the current examination. Electronically Signed: Merlin Larose, at 21:59 EST ,
== END | disposition home or self-care (01) ==
LOC: NM 08:21
PROVIDERS: PCP Family Medicine; Visit Provider Urology
DX: C61 Malignant neoplasm of prostate (principal)
CPT/HCPCS: 78306; A9503

== ENCOUNTER → 2022-10-18 | Outpatient (CLI) | payer MEDICARE, SELFPAY ==
[2022-10-18 18:16] LABS: PSA,Total- Diagnostic 0.25 ng/mL (0.0-4.0)
== END | disposition home or self-care (01) ==
LOC: LAB 15:56
PROVIDERS: PCP Family Medicine; Referring Provider Urology; Visit Provider Urology
DX: C61 Malignant neoplasm of prostate (principal)
CPT/HCPCS: 36415; 84153

== ENCOUNTER → 2022-12-11 | Outpatient (CLI) | payer MEDICARE, SELFPAY ==
[2022-12-11 17:24] LABS: Absolute Lymphocyte Count 2.31 X10^3/uL (0.83-4.51); Basophil# 0.06 X10^3/uL; Basophil% 0.7 % (0-1); Eosinophils% 3.6 % (0-5); Hematocrit 31.6 % (40-54); Hemoglobin 11.3 g/dL (13.0-16.5); Lymphocyte # 2.31 X10^3/ul (0.83-4.51); Lymphocyte % 27.8 % (19-41); Mean Corp Hgb Conc 35.8 g/dL (32-36); Mean Corpuscular Hgb 33.8 pg (27.0-32.0); Mean Corpuscular Volume 94.6 fL (80-94); Mean Platelet Vol. 12.6 fl (6.2-12.0); Monocyte# 0.64 X10^3/uL; Monocyte% 7.7 % (0-10); NRBC Flagged by Analyzer 0 % (0-5); Neutrophil # 4.95 X10^3/uL (2.7-7.7); Neutrophil % 59.7 % (47-70); Platelet Count 184 K/mm3 (150-450); RBC Distribution Width CV 13.4 % (11.6-14.6); RBC Distribution Width SD 46.6 fl (35.1-43.9); Red Blood Count 3.34 M/mm3 (4.6-6.2); White Blood Count 8.3 K/mm3 (4.4-11.0)
[2022-12-11 17:36] LABS: ALB/GLOB Ratio 0.9 RATIO (0.9-2.4); AST(SGOT) 21 U/L (15-37); Alanine Aminotransfer ALT/SGPT 23 U/L (16-61); Albumin, Serum 3.6 g/dL (3.2-5.0); Alkaline Phosphatase 66 U/L (45-117); Anion Gap 10 (5-15); BUN 27 mg/dL (7-18); BUN/Creat Ratio 15.7 RATIO (10-20); Calcium,Total 9.4 mg/dL (8.5-10.1); Chloride 111 mmol/L (98-107); Creatinine, Serum 1.72 mg/dL (0.70-1.30); EST Glomerular Filtration Rate 40 mL/min (>60); Est Glom Filt Rate - Afr Amer 49 mL/min (>60); Globulin 3.8 g/dL (2.2-4.2); Glucose 153 mg/dL (74-106); Potassium 3.6 mmol/L (3.5-5.1); Protein, Total 7.4 g/dL (6.4-8.2); Sodium Level 141 mmol/L (136-145)
[2022-12-11 17:44] LABS: D-Dimer Quantitative (DVT/PE) 3.61 FEU/ug/m (0.27-0.49)
[2022-12-11 18:04] LABS: BNP,B-Type NATRIURETIC PEPTIDE 29.9 pg/mL (0-100)
== END | disposition home or self-care (01) ==
PROVIDERS: PCP Family Medicine; Visit Provider Family Medicine
DX: R06.00 Dyspnea, unspecified (principal); I50.9 Heart failure, unspecified; R53.83 Other fatigue; R07.9 Chest pain, unspecified
CPT/HCPCS: 36415; 80053; 83880; 85025; 85379

== ENCOUNTER → 2022-12-12 | Outpatient (CLI) | payer MEDICARE, SELFPAY ==
--- NOTE | 2022-12-12 11:03 | RAD_ITS ---
EXAM: XR CHEST, 2 VIEWS CLINICAL INDICATION: DYSPNEA, LLL RALE, RHONCI TECHNIQUE: Frontal and lateral views of the chest. COMPARISON: No relevant prior studies available. FINDINGS: LUNGS AND PLEURAL SPACES: Mild subsegmental atelectasis and/or scarring at the lung bases. No consolidation. No pleural effusion or pneumothorax. HEART: Unremarkable. Cardiac silhouette not enlarged. MEDIASTINUM: Central airways and mediastinal contour are unremarkable. BONES/JOINTS: Degenerative changes of the spine. Degenerative changes of the acromioclavicular joints. SOFT TISSUES: Unremarkable. VASCULATURE: Atherosclerotic calcifications of the nonenlarged thoracic aortic arch. RAD/Chest PA and Lateral IMPRESSION: No acute cardiopulmonary disease. Electronically Signed: Kimani Weber MD at 2:09 EDT ,
== END | disposition home or self-care (01) ==
LOC: RAD 10:58
PROVIDERS: PCP Family Medicine; Referring Provider Family Medicine; Visit Provider Family Medicine
DX: R06.00 Dyspnea, unspecified (principal)
CPT/HCPCS: 71046

== ENCOUNTER → 2022-12-19 | Outpatient (CLI) | payer MEDICARE, SELFPAY ==
--- NOTE | 2022-12-19 14:41 | CT_ITS ---
We are attempting to reach an attending provider to discuss findings. An addendum with communication details will be sent when the communication is complete. STUDY: CTA CHEST REASON FOR EXAM: Male, 87 years old. COUGH/DYSPNEA/ELEVATED D DIMER/ PROSTATE CA RADIATION DOSAGE (If Supplied By Facility): CTDIvol = ( 11.79 ) mGy, DLP = ( 434.75 ) mGycm TECHNIQUE: The examination was performed with the intravenous administration of 100 ML ISOVUE 370. Post-processing of the angiographic images was performed, with multiplanar reformation and 3D reconstruction. Individualized dose optimization techniques were used for this CT. COMPARISON: FINDINGS: Normal enhancement of the main pulmonary artery and right and left pulmonary arteries. Normal enhancement of the bilateral peripheral pulmonary arteries. There is no demonstrated pulmonary embolism. Normal thoracic aorta and visualized great vessels. There is no demonstrated aortic dissection. Normal heart and pericardium. Normal mediastinum. Normal hilar regions. Normal visualized trachea and bronchi. There is mild bronchiectasis in both lower lobes, right middle lobe and left upper lobe. There is mild right basilar compressive atelectasis. There is a pleural-based 3 mm nodule in the left lower lobe axial image 108. There is a 2 mm nodule in the left lower lobe axial image 11. There is a 3 mm nodule in the right lower lobe axial image 110. There is a 4 mm nodule in the right lower lobe axial image 94. Remaining lungs appear unremarkable. No pleural effusions are identified. Normal chest wall structures. Normal osseous structures. There is a prominent hiatal hernia. CT/CTA Chest W/WO Contrast IMPRESSION: No evidence for acute pulmonary embolism. Multiple small lung nodules. Short-term follow-up recommended. Bibasilar compressive atelectasis. Prominent hiatal hernia. Electronically Signed: Slade Tolbert, at 17:21 EDT ,
== END | disposition home or self-care (01) ==
LOC: CT 14:39
PROVIDERS: PCP Family Medicine; Referring Provider Family Medicine; Visit Provider Family Medicine
DX: R05.9 Cough, unspecified (principal); R06.00 Dyspnea, unspecified; R07.9 Chest pain, unspecified; R79.89 Other specified abnormal findings of blood chemistry
CPT/HCPCS: 71275; Q9967

== ENCOUNTER → 2023-01-11 | Outpatient (CLI) | payer MEDICARE, SELFPAY ==
[2023-01-11 11:55] LABS: PSA,Total- Diagnostic 0.61 ng/mL (0.0-4.0)
== END | disposition home or self-care (01) ==
LOC: LAB 11:02
PROVIDERS: PCP Family Medicine; Referring Provider Urology; Visit Provider Urology
DX: C61 Malignant neoplasm of prostate (principal)
CPT/HCPCS: 36415; 84153

== ENCOUNTER → 2023-03-25 | Outpatient (CLI) | payer MEDICARE, SELFPAY ==
[2023-03-25 17:39] LABS: Absolute Lymphocyte Count 2.53 X10^3/uL (0.83-4.51); Basophil# 0.08 X10^3/uL; Basophil% 0.9 % (0-1); Eosinophil# 0.28 X10^3/uL; Eosinophils% 3.2 % (0-5); Hematocrit 34.8 % (40-54); Hemoglobin 11.5 g/dL (13.0-16.5); Lymphocyte # 2.53 X10^3/ul (0.83-4.51); Mean Corpuscular Volume 96.9 fL (80-94); Mean Platelet Vol. 12.5 fl (6.2-12.0); Monocyte# 0.83 X10^3/uL; Monocyte% 9.5 % (0-10); NRBC Flagged by Analyzer 0 % (0-5); Neutrophil # 4.95 X10^3/uL (2.7-7.7); Neutrophil % 56.8 % (47-70); Platelet Count 173 K/mm3 (150-450); RBC Distribution Width CV 12.9 % (11.6-14.6); RBC Distribution Width SD 46.2 fl (35.1-43.9); Red Blood Count 3.59 M/mm3 (4.6-6.2); White Blood Count 8.7 K/mm3 (4.4-11.0)
[2023-03-25 18:12] LABS: Vitamin B12 366 pg/mL (211-911); Vitamin D,25 Hydroxy 58.2 ng/mL
[2023-03-25 18:15] LABS: AST(SGOT) 23 U/L (15-37); Alanine Aminotransfer ALT/SGPT 24 U/L (16-61); Albumin, Serum 3.7 g/dL (3.2-5.0); Alkaline Phosphatase 55 U/L (45-117); Anion Gap 9 (5-15); BUN 27 mg/dL (7-18); BUN/Creat Ratio 15.2 RATIO (10-20); Chloride 110 mmol/L (98-107); Creatinine, Serum 1.78 mg/dL (0.70-1.30); EST Glomerular Filtration Rate 39 mL/min (>60); Est Glom Filt Rate - Afr Amer 47 mL/min (>60); Ferritin 132 ng/mL (26-388); Globulin 3.8 g/dL (2.2-4.2); Glucose 88 mg/dL (74-106); Iron 85 ug/dL (65-175); Potassium 3.8 mmol/L (3.5-5.1); Protein, Total 7.5 g/dL (6.4-8.2); Sodium Level 142 mmol/L (136-145)
[2023-03-26 09:44] LABS: PTHIN 102.6 pg/mL (18.4-80.1)
== END | disposition home or self-care (01) ==
LOC: BFHLAB 13:47
PROVIDERS: PCP Family Medicine; Referring Provider Family Medicine; Visit Provider Family Medicine
DX: R53.83 Other fatigue (principal); N18.32 Chronic kidney disease, stage 3b; D64.9 Anemia, unspecified; E55.9 Vitamin D deficiency, unspecified; Z51.81 Encounter for therapeutic drug level monitoring
CPT/HCPCS: 36415; 80053; 82306; 82607; 82728; 83540; 83970; 84443; 85025

== ENCOUNTER → 2023-04-12 | Outpatient (CLI) | payer MEDICARE, SELFPAY ==
--- NOTE | 2023-04-12 15:23 | MRI_ITS ---
STUDY: MRI LUMBAR SPINE WITHOUT CONTRAST REASON FOR EXAM: Male, 87 years old. pain, bilat leg radiculopathy x8 months TECHNIQUE: Standardized fat and water weighted pulse sequences were obtained in the sagittal and axial planes. COMPARISON: Lumbar spine series March 21, 2023 FINDINGS: T12-L1: Normal endplates. Normal disc height, desiccation and normal morphology. Normal bilateral facet joints. Normal central canal and bilateral lateral recesses. Normal bilateral intervertebral neural foramina. Normal lumbar lordosis. There is no substantial scoliosis. Normal conus medullaris that terminates at T12-L1 L1-2: Normal endplates. Normal disc height, desiccation and normal morphology. Normal bilateral facet joints. Normal central canal and bilateral lateral recesses. Normal bilateral intervertebral neural foramina. L2-3: Normal endplates. Normal disc height, desiccation and tiny bilateral foraminal disc protrusions. Normal bilateral facet joints. Mild central canal stenosis secondary to posterior epidural fat. Normal bilateral lateral recesses. Minor bilateral neural foraminal encroachment L3-4: Normal endplates. Normal disc height, desiccation and minimal annular bulge.. Mild facet arthropathy. Mild narrowing the central canal secondary to posterior epidural fat. Normal bilateral lateral recesses. Normal bilateral intervertebral neural foramina. L4-5: Normal endplates. Normal disc height, desiccation and minor annular bulge.. Facet arthropathy and mild thickening of ligamenta flava Normal central canal and bilateral lateral recesses. Severe bilateral neural foraminal stenosis exaggerated by shortened pedicles L5-S1: Normal endplates. Normal disc height, desiccation and minimal annular bulge with tiny right foraminal disc protrusion. Facet arthropathy and mild thickening of ligamenta flava Normal central canal and bilateral lateral recesses. Moderate left neural foraminal stenosis and moderate to severe narrowing on the right Normal visualized sacral ala. Normal visualized paraspinous soft tissue structures. Findings not changed since prior exam given inherent differences in imaging modalities. MRI/Spine Lumbar (Routine) IMPRESSION: No evidence for acute fracture or other significant bony pathology. Multilevel spinal stenosis secondary to disc disease and bony protrusion most severe at L4-5 exaggerated by shortened pedicles and L5-S1 greater on the right Findings as above Electronically Signed: Philip Edwards MD at 17:16 EDT ,
== END | disposition home or self-care (01) ==
LOC: MRI 15:16
PROVIDERS: PCP Family Medicine; Referring Provider Orthopaedic Surgery; Visit Provider Orthopaedic Surgery
DX: M48.061 Spinal stenosis, lumbar region without neurogenic claudication (principal)
CPT/HCPCS: 72148

== ENCOUNTER 2023-07-01 16:07 | Emergency (ER) | payer MEDICARE, SELFPAY ==
[2023-07-01 16:08] VITALS: BP 142/73; PULSE 96; RESP 18; TEMP 36; O2SAT 95; BMI 33.7
--- NOTE | 2023-07-01 17:31 | EKG12_ITS ---
Test Reason : GENERAL Blood Pressure : / mmHG Vent. Rate : 087 BPM Atrial Rate : 087 BPM P-R Int : 142 ms QRS Dur : 102 ms QT Int : 394 ms P-R-T Axes : 049 -42 049 degrees QTc Int : 474 ms Sinus rhythm with marked sinus arrhythmia Left axis deviation Incomplete right bundle branch block Abnormal ECG Confirmed by MARCELL MCKEON, MALIA ([id number]), news videotape editor ROSSY FRANK ([id number]) on 07/02/2023 10:11:03 AM Referred By: Confirmed By:MALIA FAITH MD
--- OUTSIDE RECORDS SUMMARY | 2023-07-01 17:41 | XMS RPT_ITS | CCD ---
Author Name Unknown Address [address] [facility] [address] [place] [id number] Organization [facility] Care Team Providers Care Employee Benefits Administrator Name Role Phone AZALEA VILLARREAL JR. Unavailable Unavailable JONATHAN MCKOY Unavailable Unavailable AZALEA VILLARREAL JR. Unavailable Unavailable JONATHAN MCKOY Unavailable Unavailable Encounters Encounter Date Encounter Type Care Provider Facility Start: 11-21-2017 End: 11-22-2017 Ambulatory AZALEA VILLARREAL Facility:[facility] Start: 11-05-2017 End: 11-06-2017 Ambulatory AZALEA VILLARREAL Facility:[facility] Payers Date Payer Category Payer Medicare [id number] Summary Purpose Family History No Family History Records Found Advance Directives No Advanced Directives Records Found Additional Source Comments (unrecognized sect ion and content) No Status Records Found INFORMATION SOURCE (unrecogn ized section and content) FOR RECORDS PERTAINING TO PATIENTS WHO ARE OR HAVE BEEN ENROLLED IN A CHEMICAL DEPENDENCY/SUBSTANCEABUSE PROGRAM, SOME INFORMATION MAY BE OMITTED. This clinical summary was aggregated from multiple sources. Caution should be exercised in using it in the provision of clinical care. This summary normalizes information from multiple sources, and as a consequence, information in this document may materially change the coding, format and clinical context of patient data. In addition, data may be omitted in some cases. CLINICAL DECISIONS SHOULD BE BASED ON THE PRIMARY CLINICAL RECORDS. [employer] provides no warranty or guarantee of the accuracy or completeness of information in this document.
--- NOTE | 2023-07-01 17:43 | ED.RN ---
PT UPDATED WAITING ON DR TO SEE. TOUCHED BASE WITH DR ALEX TO SEE IF THERE WAS ANYTHING HE WANTED TO INITIATE IN THE INTERM
--- NOTE | 2023-07-01 17:58 | RAD_ITS ---
STUDY: X-RAY CHEST REASON FOR EXAM: Male, 87 years old. chest pain TECHNIQUE: Single AP portable view of the chest. COMPARISON: 12/12/2022. FINDINGS: There is mild left basilar atelectasis, otherwise lung [place] are clear. There is no demonstrated pleural abnormality. Normal size heart. Normal mediastinum and frantz. Normal visualized pulmonary arteries. Normal visualized aortic arch and descending thoracic aorta. Normal visualized thoracic spine. Normal visualized ribs, clavicles, and shoulders. Possible hiatal hernia. RAD/Chest 1 View (Portable) IMPRESSION: Left basilar atelectasis, otherwise no acute cardiopulmonary disease. Possible hiatal hernia. Electronically Signed: Zhanna Beckford MD at 18:32 EST ,
[2023-07-01 18:03] LABS: Absolute Lymphocyte Count 1.81 X10^3/uL (0.83-4.51); Absolute Neutrophil Count 7.2 X10^3/uL (2.0-7.7); Basophil# 0.06 X10^3/uL; Basophil% 0.6 % (0-1); Eosinophils% 2.9 % (0-5); Hematocrit 33.5 % (40-54); Hemoglobin 11.5 g/dL (13.0-16.5); Lymphocyte # 1.81 X10^3/ul (0.83-4.51); Lymphocyte % 17.6 % (19-41); Mean Corp Hgb Conc 34.3 g/dL (32-36); Mean Corpuscular Hgb 32.4 pg (27.0-32.0); Mean Corpuscular Volume 94.4 fL (80-94); Mean Platelet Vol. 11.6 fl (6.2-12.0); Monocyte# 0.83 X10^3/uL; Monocyte% 8.1 % (0-10); NRBC Flagged by Analyzer 0 % (0-5); Neutrophil # 7.22 X10^3/uL (2.7-7.7); Neutrophil % 69.9 % (47-70); Platelet Count 175 K/mm3 (150-450); RBC Distribution Width CV 13.2 % (11.6-14.6); RBC Distribution Width SD 45.7 fl (35.1-43.9); Red Blood Count 3.55 M/mm3 (4.6-6.2); White Blood Count 10.3 K/mm3 (4.4-11.0)
--- NOTE | 2023-07-01 18:20 | CT_ITS ---
STUDY: CT ABDOMEN AND PELVIS WITH CONTRAST REASON FOR EXAM: Male, 87 years old. abdominal pain RADIATION DOSAGE (If Supplied By Facility): CTDIvol = ( 17.63 ) mGy, DLP = ( 1040.84 ) mGycm TECHNIQUE: Transaxial images were obtained from the dome of the diaphragm to the symphysis pubis without oral contrast. IV 75mL Isovue-370 was administered. Sagittal and coronal images were reconstructed. Individualized dose optimization techniques were used for this CT. COMPARISON: 07/23/2022. FINDINGS: Minimal bilateral lower lobe atelectasis. Normal cardiac size with coronary artery calcifications. Normal liver. Normal gallbladder and extrahepatic biliary system. Normal spleen. Normal pancreas. Normal bilateral adrenal glands. Normal right kidney. Normal left kidney. Large hiatal hernia. Normal small intestine. There are multiple colonic diverticula consistent with diverticulosis. There are surgical clips in the region of the appendix consistent with a prior appendectomy. There is mild atherosclerotic calcification of the abdominal aorta, without a demonstrated aneurysm. Normal inferior vena cava. Normal retroperitoneum. Normal urinary bladder. Minimal left-sided fat-containing inguinal hernia. Possible osteopenia with mild spondylosis/degenerative disease of the spine. Mild degenerative disease of bilateral hips. CT/Abdomen/Pelvis W IV Cont ONLY IMPRESSION: Status post appendectomy. Diverticulosis with no signs of diverticulitis. No bowel obstruction. Unremarkable abdominal viscera. Large hiatal hernia, stable. Electronically Signed: Zhanna Beckford MD at 19:24 EST ,
--- NOTE | 2023-07-01 18:25 | ED.VIS.BACK ---
HPI History of Present Illness Chief Complaint: Back Narrative Narrative: 87-year-old male presenting with multiple complaints. He states that for the last 2 weeks he has noticed that her legs are swollen. This is intermittent. He noticed they were swollen again today. He has not seen his primary care physician or his painter touch up for this. He states that all of this started after he received back injections a couple of weeks ago which after an extended conversation sounds like it was near a month ago. Patient denies any fevers, chills. No chest pain, palpitations, shortness of breath. He does admit that he has some urinary dribbling which is new. He has a history of prostate cancer and sees Dr. Hein. He is on therapy for this. Patient states that he does not have dysuria and does not feel unwell although he states that when he was diagnosed with prostate cancer this symptom of dribbling was the biggest problem. Patient states he does get prescribed [place] at home and takes half of 5 mg [place] when he needs it for pain and has not taken anything since yesterday because he has not needed it. Patient also states that his tongue feels dry and it feels like it is burning in his mouth. He states this all started when he got his shot in his lower back for his spinal stenosis. He is not sure why. He has been able to eat and drink. He states that when he drinks Coke it barrett his mouth more when he drinks water. Patient also reports that he has been constipated and intermittently. He states that he has had bowel movements. He states he does not take any fiber supplements or laxatives because he takes too many medications already. He denies aggie abdominal pain but notes that he has greater suprapubic pain and proximal thigh pain. [facility] Medical History Ambulates with cane Anxiety Arthritis Back pain Cardiology follow-up encounter Depression Difficulty swallowing Gastric reflux History of echocardiogram History of edema History of stress test Hypertension Injury of head and neck Low iron Non-smoker Prostate disease Shortness of breath on exertion Syncope Wears glasses Home Medications escitalopram oxalate 20 mg tablet 20 mg PO QHS 06/14/15 [History Last Taken 06/19/22] losartan 100 mg-hydrochlorothiazide 25 mg tablet (Hyzaar) 1 tab PO DAILY 06/14/15 [History Last Taken 06/19/22] psyllium husk (aspartame) 3.4 gram oral powder packet (Metamucil Fiber Singles) 1 packet PO QHS 06/14/15 [History Last Taken 06/19/22] simvastatin 40 mg tablet 40 mg PO QODAY 06/14/15 [History Last Taken 06/19/22] omeprazole 40 mg capsule,delayed release 40 mg PO DAILY 06/15/22 [History Last Taken 06/20/22] propranolol 10 mg tablet 10 mg PO DAILY 06/15/22 [History Last Taken 06/20/22] megestrol 20 mg tablet 20 mg PO ONCE 03/21/23 [History Last Taken Unknown] oxybutynin chloride 15 mg tablet,extended release 24 hr 15 mg PO DAILY 03/21/23 [History Last Taken Unknown] Allergy/AdvReac Type Severity Reaction Status Date / Time No Known Allergies Allergy Verified 07/01/23 16:08 Surgical History Hx of appendectomy Hx of arthroscopic knee surgery Hx of colonoscopy Hx of cystoscopy Hx of hemorrhoidectomy Hx of left cataract extraction Hx of right cataract extraction Hx of umbilical hernia repair Social History Smoking Status: Never smoker ROS ROS ED Constitutional Constitutional ED: Denies chills, fever(s) or sweats Eyes Eyes: Denies blurry vision or change in vision ENT ENT ED: Denies ear pain or sore throat Cardiovascular Cardiovascular: Denies chest pain, palpitations or racing heartbeat Respiratory/Chest Respiratory/Chest: Denies cough, dyspnea or sputum Gastrointestinal Gastrointestinal: Denies abdominal pain, constipation, diarrhea, nausea or vomiting Genitourinary Genitourinary ED: Denies dysuria, hematuria or urinary frequency Musculoskeletal Musculoskeletal: Denies arthralgias, myalgias or neck pain Integumentary Denies abscess, Abrasions or rash Neurologic Neurologic: Denies headache(s), paresthesias or weakness Psychiatric Psychiatric: Denies anxiety, depression, suicidal ideation or suicidal thoughts Endocrine Endocrinology: Denies polydipsia or polyuria EXAM Physical Exam Const Vital Signs: 07/01/23 16:08 07/01/23 16:15 07/01/23 18:45 Temperature 96.8 F L Temperature Source Temporal Pulse Rate 96 84 Respiratory Rate 18 17 Blood Pressure 142/73 H 132/93 H Blood Pressure Mean 96 106 Pulse Ox 95 94 Oxygen Delivery Method Room Air Room Air Room Air Positive well nourished and well developed General Appearance ED: well developed; Negative for pallor HEENT Reports moist mucous membranes Nose: external nose normal and nares normal Mouth ED: Yes oral and palatal mucosa normal, Yes lips normal, Yes tongue normal and Yes salivary gland normal Mouth: oral and palatal mucosa normal, lips normal, tongue normal and salivary gland normal Throat: posterior oropharynx normal Eyes PERRL and EOMs intact bilaterally Neck no lymphadenopathy Resp normal respiratory effort and clear to auscultation bilaterally Auscultation: Negative for rales, rhonchi or wheezes Cardio regular rate and regular rhythm GI normal to inspection, nondistended, normoactive bowel sounds Back/Spine General Back: Negative for CVA tenderness Cervical Spine: Negative for cervical spine tenderness Extremity normal to inspection General Extremety ED: Negative for edema or tenderness General Extremity: Negative for edema Neuro oriented x3 and no sensory deficits noted Sensorium / Orientation: alert Motor Exam: strength 5/5 throughout Psych mental status grossly normal Skin no rashes or lesions noted and no wounds General Skin Exam: Negative for jaundice or pallor MDM MDM MDM Narrative Medical decision making narrative: Patient presenting with multiple symptoms. He does have some urinary dribbling so I will test him for UTI with urinalysis. CBC will also be obtained to assess white blood cell count, hemoglobin, platelets. BMP to assess renal function and electrolytes. Because he has a history of lower extremity edema which I do not find on examination will rule out CHF. Will get a chest x-ray, EKG, BNP, high-sensitivity troponin. Patient also planing back pain and I am unable to reproduce this on examination. Does have any CVA tenderness. He does have a history of spinal stenosis. We will obtain a CT of the abdomen pelvis with IV contrast. For the burning in his mouth I do not see anything on his HEENT exam. I offered him a GI cocktail which may help with some of the symptoms. He denies any acid reflux symptoms he was amenable to a GI cocktail. I offered him pain medication and nonmedication he states he does not need anything right now. CBC shows normal white blood cell count 10.3. Hemoglobin stable 11.5. Platelets are normal at 175. Calcium slightly low at 3.3 otherwise electrolytes unremarkable. Creatinine is slightly elevated at 1.98 today and he was given IV fluids. Glucose 143 without anion gap. LFTs are normal. High-sensitivity troponin is 10 and delta troponin is 11. There is no significant interval change. BNP is also normal in addition to this I found no evidence of lower extremity edema on examination. Urinalysis is negative. Chest x-ray on my interpretation shows no acute process. The radiologist interprets this and agrees. EKG on my interpretation shows a normal sinus rhythm with a ventricular rate of [address] of the abdomen pelvis was obtained and this is negative for acute findings as well. Ultimately the patient's workup is negative. I feel he stable for discharge home. Counseled on all findings. Discussed with he and his family member. It is recommended that he follow-up with his PCP for reevaluation. Impression: 1. Abdominal pain 2. Dysuria 3. Leg pains 4. Back pain 5. Stomodynia Lab Data Attestation: I reviewed the patient's lab results. Labs: Laboratory Results - last 24 hr 07/01/23 07/01/23 07/01/23 17:53 18:55 20:05 WBC 10.3 RBC 3.55 L Hgb 11.5 L Hct 33.5 L MCV 94.4 H MCH 32.4 H MCHC 34.3 RDW Std Deviation 45.7 H RDW Coeff of Feroz 13.2 Plt Count 175 MPV 11.6 Immature Gran % (Auto) 0.900 Neut % (Auto) 69.9 Lymph % (Auto) 17.6 L Ellis % (Auto) 8.1 Eos % (Auto) 2.9 Baso % (Auto) 0.6 Absolute Neuts (auto) 7.2 Absolute Lymphs (auto) 1.81 Nucleated RBC % 0 Sodium 140 Potassium 3.3 L Chloride 110 H Carbon Dioxide 23.0 Anion Gap 7 BUN 34 H Creatinine 1.98 H Estim Creat Clear Calc 21.55 Est GFR (MDRD) Af Amer 41 L Est GFR (MDRD) Non-Af 34 L BUN/Creatinine Ratio 17.2 Glucose 143 H Calcium 9.3 Total Bilirubin 0.50 Direct Bilirubin 0.18 AST 15 ALT 18 Alkaline Phosphatase 66 Troponin I High Sens 10 11 B-Natriuretic Peptide 17.6 Total Protein 7.4 Albumin 3.5 Globulin 3.9 Urine Color Yellow Urine Clarity Clear Urine pH 6.0 Ur Specific [place] 1.015 Urine Protein 15 H Urine Glucose (UA) Normal Urine Ketones Negative Urine Occult Blood Negative Urine Nitrite Negative Urine Bilirubin Negative Urine Urobilinogen Normal Ur Leukocyte Esterase Negative Urine RBC 0 SEEN Urine WBC 0-5 SEEN Ur Squamous Epith Cells 0 SEEN Urine Bacteria 0 SEEN Urine Mucus 0 SEEN Radiography Diagnostic Testing: Clinical Impression(s) from Imaging Studies Chest X-Ray 07/01/23 17:58 IMPRESSION: Left basilar atelectasis, otherwise no acute cardiopulmonary disease. Possible hiatal hernia. Electronically Signed: Zhanna Beckford MD at 18:32 EST Reading Location ID and State: [facility] / [employer] , Service support , Abdomen/Pelvis CT 07/01/23 18:20 IMPRESSION: Status post appendectomy. Diverticulosis with no signs of diverticulitis. No bowel obstruction. Unremarkable abdominal viscera. Large hiatal hernia, stable. Electronically Signed: Zhanna Beckford MD at 19:24 EST Reading Location ID and State: [id number] / [employer] , Service support , Discharge Plan Triage Chief Complaint: Back ED Provider: Rodolfo Kim Dx/Rx/DC Orders Clinical Impression: Mouth pain Instructions: ED Back Pain (Acute or Chronic), ED Dysuria, Uncertain Cause (Adult) Prescriptions: No Action megestrol 20 mg tablet 20 mg PO ONCE oxybutynin chloride 15 mg tablet extended release 24hr 15 mg PO DAILY simvastatin 40 MG tablet 40 mg PO QODAY Patient Comments: CHOLESTEROL losartan-hydrochlorothiazide [Hyzaar] 1 TAB tablet 1 tab PO DAILY Patient Comments: BLOOD PRESSURE escitalopram oxalate 20 MG tablet 20 mg PO QHS Patient Comments: DEPRESSION Metamucil Fiber Singles 1 PACKET powder in packet 1 packet PO QHS Patient Comments: CONSTIPATION omeprazole 40 mg Capsule,Delayed Release(Dr/Ec) 40 mg PO DAILY propranolol 10 mg Tablet 10 mg PO DAILY Primary Care Provider: Rodrigo Benoit Referrals: Rodrigo Benoit, [Primary Care Provider] - Disposition Disposition: Home, Self Care
[2023-07-01 18:28] LABS: AST(SGOT) 15 U/L (15-37); Alanine Aminotransfer ALT/SGPT 18 U/L (16-61); Albumin, Serum 3.5 g/dL (3.2-5.0); Alkaline Phosphatase 66 U/L (45-117); Anion Gap 7 (5-15); BUN 34 mg/dL (7-18); BUN/Creat Ratio 17.2 RATIO (10-20); Bilirubin, Direct 0.18 mg/dL (0.00-0.30); Calcium,Total 9.3 mg/dL (8.5-10.1); Chloride 110 mmol/L (98-107); Creatinine, Serum 1.98 mg/dL (0.70-1.30); EST Glomerular Filtration Rate 34 mL/min (>60); Est Glom Filt Rate - Afr Amer 41 mL/min (>60); Estimated Creatinine Clearance 21.55 ml/min; Globulin 3.9 g/dL (2.2-4.2); Glucose 143 mg/dL (74-106); Potassium 3.3 mmol/L (3.5-5.1); Protein, Total 7.4 g/dL (6.4-8.2); Sodium Level 140 mmol/L (136-145); Troponin-I HS (w/2H Reflex) 10 pg/mL (3.0-78.0)
[2023-07-01] MEDS: Mag Hydrox/Al Hydrox/Simeth 30 ML UDC PO (18:41)
[2023-07-01 18:43] LABS: BNP,B-Type NATRIURETIC PEPTIDE 17.6 pg/mL (0-100)
[2023-07-01 18:45] VITALS: BP 132/93; PULSE 84; RESP 17; O2SAT 94
--- NOTE | 2023-07-01 18:47 | ED.RN ---
PT HS MULTIPLE C/O. BLE EDEMA MLD TO +1 PITTING TO JUST ABOVE KNEES.
[2023-07-01 19:04] LABS: Bacteria 0 SEEN /hpf (None Seen); Color, Urine Yellow (Yellow); Glucose, Dipstick Normal (Normal); Ketone-Dipstick Negative (Negative); Leukocyte Esterase-Dipstick Negative /ul (Negative); Mucous, Urine 0 SEEN /hpf (<or=2+); Nitrite-Dipstick Negative (Negative); Occult Blood-Urine Negative /ul (Negative); Protein-Dipstick 15 mg/dl (Negative); Red Blood Cells-Urine 0 SEEN /hpf (0-5); Specific Gravity, Urine 1.015 (1.002-1.030); Squamous Epithelial Cells - UA 0 SEEN /hpf (0-5); Urine Bilirubin Dipstick Negative (Negative); Urine Clarity Clear (Clear); Urine Urobilinogen Normal (Normal)
[2023-07-01 19:13] LABS: White Blood Cells 0-5 SEEN /hpf (0-5)
[2023-07-01 19:56] LABS: Reflex Troponin-HS? (from REC) Y
[2023-07-01 20:00] VITALS: RESP 18
[2023-07-01 20:34] LABS: Troponin-I HS 11 pg/mL (3.0-78.0)
== END 2023-07-01 21:10 | disposition home or self-care (01) ==
PROVIDERS: Emergency Provider Student in an Organized Health Care Education/Training Program; PCP Family Medicine; Visit Provider Student in an Organized Health Care Education/Training Program
DX: K13.79 Other lesions of oral mucosa (principal); M54.9 Dorsalgia, unspecified; M79.606 Pain in leg, unspecified; M48.00 Spinal stenosis, site unspecified; R30.0 Dysuria; I10 Essential (primary) hypertension; R10.9 Unspecified abdominal pain
CPT/HCPCS: 71045; 74177; 80048; 80076; 81001; 83880; 84484; 85025; 93005; 99284; Q9967; A4216

== ENCOUNTER → 2023-07-10 | Outpatient (CLI) | payer MEDICARE, SELFPAY ==
--- OUTSIDE RECORDS SUMMARY | 2023-07-10 15:54 | XMS RPT_ITS | CCD ---
Author Name Unknown Address [address] [facility] [address] [place] [id number] Organization [facility] Care Team Providers Care Shrimp Peeler Name Role Phone AZALEA VILLARREAL JR. Unavailable Unavailable JONATHAN MCKOY Unavailable Unavailable AZALEA VILLARREAL JR. Unavailable Unavailable JONATHAN MCKOY Unavailable Unavailable Encounters Encounter Date Encounter Type Care Provider Facility Start: 11-21-2017 End: 11-22-2017 Ambulatory AZALEA VILLARREAL Facility:[facility] Start: 11-05-2017 End: 11-06-2017 Ambulatory AZALEA VILLARREAL Facility:[facility] Payers Date Payer Category Payer Medicare [id number] Summary Purpose Family History No Family History [...] BE BASED ON THE PRIMARY CLINICAL RECORDS. [employer] provides no warranty or guarantee of the accuracy or completeness of information in this document.
[2023-07-10 17:00] LABS: PSA,Total- Diagnostic 0.35 ng/mL (0.0-4.0)
== END | disposition home or self-care (01) ==
LOC: LAB 15:33
PROVIDERS: PCP Family Medicine; Referring Provider Urology; Visit Provider Urology
DX: C61 Malignant neoplasm of prostate (principal)
CPT/HCPCS: 36415; 84153

== ENCOUNTER → 2023-07-30 | Outpatient (CLI) | payer MEDICARE, SELFPAY ==
[2023-07-30 17:54] LABS: Amphetamine Urine VISTA NEGATIVE (<1000 ng/mL); Barbiturate Urine VISTA NEGATIVE (< 200 ng/mL); Benzodiazepine Urine VISTA NEGATIVE (< 200 ng/mL); Cocaine Urine VISTA NEGATIVE (< 300 ng/mL); Ecstacy Urine VISTA NEGATIVE (< 500 ng/mL); Methadone Urine VISTA NEGATIVE (< 300 ng/mL); PCP Urine VISTA NEGATIVE (< 25 ng/mL); THC Urine VISTA NEGATIVE (< 50 ng/mL); Vista UDS pH Range 5
== END | disposition home or self-care (01) ==
LOC: LAB 17:10
PROVIDERS: PCP Family Medicine; Referring Provider Anesthesiology Pain Medicine; Visit Provider Anesthesiology Pain Medicine
DX: F11.20 Opioid dependence, uncomplicated (principal)
CPT/HCPCS: 80307

== ENCOUNTER → 2023-09-05 | Outpatient (CLI) | payer MEDICARE, SELFPAY ==
--- NOTE | 2023-09-05 17:00 | RAD_ITS ---
STUDY: X-RAY - BILATERAL RIBS WITH CHEST REASON FOR EXAM: Male, 87 years old. FALL TECHNIQUE - RIBS: 8 view(s) of the ribs. TECHNIQUE - CHEST: AP portable COMPARISON: None. FINDINGS - RIBS : Normal visualized ribs without a demonstrated fracture. FINDINGS - CHEST: Mild discoid atelectasis right lower lobe and slightly more pronounced left lower lobe atelectasis.. There is no demonstrated pleural abnormality. Normal size heart. Normal mediastinum and frantz. Normal visualized pulmonary arteries. Mildly tortuous and calcified Normal visualized thoracic spine. Normal visualized ribs, clavicles, and shoulders. Small hiatal hernia is noted There is no demonstrated abnormality of the visualized soft tissue structures of the upper abdomen. RAD/Ribs Lance Min 4V w/PA Chest IMPRESSION: RIBS: Normal x-ray examination of the bilateral ribs. CHEST: Bibasilar atelectasis more severe on the left.. Electronically Signed: Philip Edwards MD at 17:22 EDT Reading Location ID and State: [address] [place] [address] Tel , Service support ,
--- OUTSIDE RECORDS SUMMARY | 2023-09-05 22:32 | XMS RPT_ITS | CCD ---
Author Name Unknown Address [address] [facility] [address] [place] [id number] Organization [facility] Care Team Providers Care Chief Radiation Therapist Name Role Phone AZALEA VILLARREAL JR. Unavailable Unavailable JONATHAN MCKOY Unavailable Unavailable AZALEA VILLARREAL JR. Unavailable Unavailable JONATHAN MCKOY Unavailable Unavailable Encounters Encounter Date Encounter Type Care Provider Facility Start: 11-21-2017 End: 11-22-2017 Ambulatory AZALEA VILLARREAL Facility:[facility] Start: 11-05-2017 End: 11-06-2017 Ambulatory AZALEA VILLARREAL Facility:[facility] Payers Date Payer Category Payer Medicare [id number] Summary Purpose Family History No Family History [...] BE BASED ON THE PRIMARY CLINICAL RECORDS. [employer] provides no warranty or guarantee of the accuracy or completeness of information in this document.
== END | disposition home or self-care (01) ==
LOC: RAD 16:49
PROVIDERS: PCP Family Medicine; Referring Provider Anesthesiology Pain Medicine; Visit Provider Anesthesiology Pain Medicine
DX: S29.9XXA Unspecified injury of thorax, initial encounter (principal); W19.XXXA Unspecified fall, initial encounter
CPT/HCPCS: 71111

== ENCOUNTER → 2023-11-14 | Outpatient (CLI) | payer MEDICARE, SELFPAY ==
--- NOTE | 2023-11-14 15:43 | CT_ITS ---
STUDY: CT BRAIN WITHOUT CONTRAST REASON FOR EXAM: Male, 88 years old. Repeated falls RADIATION DOSAGE (If Supplied By Facility): CTDIvol = ( 44.99 ) mGy, DLP = ( 796.11 ) mGycm TECHNIQUE: Transaxial CT imaging of the brain was performed without administration of intravenous contrast material. Individualized dose optimization techniques were used for this CT. COMPARISON: No relevant priors. FINDINGS: Normal soft tissue structures. Normal calvarium. Prominent ventricles and extra-axial spaces with atrophy. Bilateral white matter microangiopathic ischemic changes of the cerebral hemispheres. Normal basal ganglia and thalami. Normal brainstem. Normal cerebellum. There is no intracranial hemorrhage. There are no findings of an acute ischemic infarction. Normal visualized paranasal sinuses. CT/Brain/Head without Contrast IMPRESSION: Age-related changes of the brain. Electronically Signed: Jamil Meeks DO at 18:40 EDT ,
== END | disposition home or self-care (01) ==
LOC: CT 15:34
PROVIDERS: PCP Family Medicine; Referring Provider Family Medicine; Visit Provider Family Medicine
DX: R29.6 Repeated falls (principal); R32 Unspecified urinary incontinence; R41.0 Disorientation, unspecified
CPT/HCPCS: 70450

== ENCOUNTER → 2024-01-13 | Outpatient (CLI) | payer MEDICARE, SELFPAY ==
[2024-01-13 16:30] LABS: PSA,Total- Diagnostic 0.29 ng/mL (0.0-4.0)
== END | disposition home or self-care (01) ==
LOC: LAB 15:36
PROVIDERS: PCP Family Medicine; Referring Provider Nurse Practitioner; Visit Provider Nurse Practitioner
DX: C61 Malignant neoplasm of prostate (principal)
CPT/HCPCS: 36415; 84153

== ENCOUNTER → 2024-08-25 | Outpatient (CLI) | payer MEDICARE, SELFPAY ==
[2024-08-25 19:32] LABS: PSA,Total- Diagnostic 0.19 ng/mL (0.00-4.00)
== END | disposition home or self-care (01) ==
LOC: LAB 15:34
PROVIDERS: PCP Family Medicine; Referring Provider Urology; Visit Provider Urology
DX: N40.1 Benign prostatic hyperplasia with lower urinary tract symptoms (principal)
CPT/HCPCS: 36415; 84153

== ENCOUNTER 2024-09-30 07:24 | Day surgery (SDC) | payer MEDICARE, SELFPAY ==
--- NOTE | 2024-09-21 09:08 | EKG12_ITS ---
Test Reason : PRE OP Blood Pressure : */* mmHG Vent. Rate : 73 BPM Atrial Rate : 73 BPM P-R Int : 150 ms QRS Dur : 100 ms QT Int : 400 ms P-R-T Axes : 50 -40 16 degrees QTcB Int : 440 ms Normal sinus rhythm Left axis deviation Incomplete right bundle branch block Abnormal ECG Confirmed by MARCELL MCKEON, MALIA ([id number]), avid editor BOSSMAN SAGASTUME ([id number]) on 09/21/2024 11:42:51 AM Referred By: Dylan Hein Confirmed By: MALIA FAITH MD
[2024-09-21 10:39] LABS: Hematocrit 33.9 % (40-54); Hemoglobin 11.7 g/dL (13.0-16.5); Mean Corp Hgb Conc 34.5 g/dL (32-36); Mean Corpuscular Hgb 32.6 pg (27.0-32.0); Mean Corpuscular Volume 94.4 fL (80-94); Mean Platelet Vol. 12.3 fl (6.2-12.0); Platelet Count 185 K/mm3 (150-450); RBC Distribution Width CV 12.3 % (11.6-14.6); RBC Distribution Width SD 43.2 fl (35.1-43.9); Red Blood Count 3.59 M/mm3 (4.6-6.2); White Blood Count 7.5 K/mm3 (4.4-11.0)
[2024-09-21 11:23] LABS: Anion Gap 15 (5-15); BUN 28 mg/dL (4-19); BUN/Creat Ratio 16.1 RATIO (10-20); Calcium,Total 9.4 mg/dL (7.6-11.0); Carbon Dioxide 18.5 mmol/L (21.0-32.0); Chloride 106 mmol/L (98-108); Creatinine, Serum 1.76 mg/dL (0.70-1.20); EST Glomerular Filtration Rate 37 (>60); Glucose 102 mg/dL (70-99); Potassium 3.8 mmol/L (3.3-5.1); Sodium Level 140 mmol/L (133-145)
--- NOTE | 2024-09-22 09:54 | PAT.ANESEVAL ---
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 When Was Last Pacemaker Check QUESTION #4 FULL TEXT: You/Your Family Experience fever (hyperthermia) with Anesthesia Last Oral Intake Last Oral intake: Last Oral Intake NPO since Meds taken in AM with sips of water? Meds patient instructed to take am of surgery PONV PONV - manpower development specialist: PONV - manpower development specialist Female No 09/17/24 14:42 HX of Motion Sickness No 09/17/24 14:42 HX of N/V After Surgery No 09/17/24 14:42 Non-Smoker Yes 09/17/24 14:42 Duration of Surgery greater No 09/17/24 14:42 than 60 minutes Number of Risk Factors 1 09/17/24 14:42 PONV Score Low Risk 09/17/24 14:42 Height & Weight Height & Weight: Anesthesia: Height & Weight Height 5 ft 3 in 07/01/23 16:08 Respiratory Assessment Respiratory Assessment - manpower development specialist: Respiratory Tract Infection Hx - manpower development specialist Hx Respiratory Tract Infection No 09/17/24 14:42 STOP Sleep Apnea STOP Sleep Apnea - manpower development specialist: STOP Sleep Apnea - manpower development specialist Hx Hypertension Yes: CONTROLLED WITH MED 09/17/24 14:42 Hx Sleep Apnea No 09/17/24 14:42 CPAP No 09/17/24 14:42 BIPAP No 09/17/24 14:42 Do you snore loudly (louder No 09/17/24 14:42 than talking or can be heard Do you often feel tired/ No 09/17/24 14:42 fatigued/ sleepy during daytime? Has anyone observed you stop No 09/17/24 14:42 breathing during sleep? STOP Results Negative 09/17/24 14:42 QUESTION #5 FULL TEXT : Do you snore loudly (louder than talking or can be heard through closed doors)? 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 Specify any problems Hx of Preganancy in last 3 N/A 09/17/24 14:42 Months Nurse Filling Out Transfusion [facility] 09/17/24 14:42 & Questions: Date: 09/17/24 09/17/24 14:42 Time: 14:50 09/17/24 14:42 Patient unable to answer at this time (ie. confused, unrespo /Reproduction History /Reproductive History - manpower development specialist: /Reproductive Hx- manpower development specialist Hx Now No 09/17/24 14:42 Gestational Age (in weeks): EDC: Hx Hx Para Hx Section SAB No 06/15/22 09:20 PFSH Medical History Cancer Bladder disease History of renal disease High cholesterol Wears glasses Depression Anxiety Ambulates with cane Arthritis Prostate disease Low iron Back pain Injury of head and neck Syncope Difficulty swallowing Gastric reflux Non-smoker Shortness of breath on exertion History of edema History of echocardiogram History of stress test Cardiology follow-up encounter Hypertension Home Medications ?Medication ?Instructions ?Recorded ?Last Taken ?Type escitalopram oxalate 20 mg tablet 20 mg PO QHS 06/14/15 06/19/22 History losartan 100 1 tab PO DAILY 06/14/15 06/19/22 History mg-hydrochlorothiazide 25 mg tablet (Hyzaar) psyllium husk (aspartame) 3.4 gram 1 packet PO QHS 06/14/15 06/19/22 History oral powder packet (Metamucil Fiber Singles) simvastatin 40 mg tablet 40 mg PO QODAY 06/14/15 06/19/22 History omeprazole 40 mg capsule,delayed 40 mg PO DAILY 06/15/22 06/20/22 History release propranolol 10 mg tablet 10 mg PO DAILY 06/15/22 06/20/22 History megestrol 20 mg tablet 20 mg PO BID 03/21/23 Unknown History hydrocodone-acetaminophen 5-325mg 2 tab PO Q8H 09/16/24 Unknown History 5mg-325mg mirtazapine 15 mg tablet 15 mg PO QHS 09/16/24 Unknown History Allergy/AdvReac Type Severity Reaction Status Date / Time No Known Allergies Allergy Verified 09/17/24 14:40 Surgical History Hx of colonoscopy Hx of right cataract extraction Hx of left cataract extraction Hx of cystoscopy Hx of umbilical hernia repair Hx of arthroscopic knee surgery Hx of hemorrhoidectomy Hx of appendectomy Social History Smoking Status: Never smoker Audit: Pertinent Findings Pertinent Findings EKG Perinent findings: September 21, 2024. Normal sinus rhythm. Left axis deviation. Incomplete right bundle branch block. Recommendation Anesthesia Recommendation Anesthesia recommendation: OPTIMIZED for anesthesia
[2024-09-30] VITALS (10 sets, daily range): BP systolic 132–153; BP diastolic 70–106; PULSE 70–84; RESP 14–24; TEMP 36.5–36.8; O2SAT 95–98; BMI 34.0
[2024-09-30] MEDS: 0.9% Normal Saline (1000mL) 1,000 ML 15 ML IV (08:14)
--- NOTE | 2024-09-30 08:54 | PCM.PRE.AN2 ---
ASA Classification* ASA Classification ASA Classification: 2 Assessment & Plan Anesthesia* Anesthesia Assessment Anesthesia Assessment: Discussed sedation and/or anesthesia options, risks, benefits, and alternatives with patient/parents/legal guardian/POA. Questions invited. The patient/parents/legal guardian/POA seems to understand and agrees to proceed with anesthesia plan. Reviewed the physical assessment, medical history, allergy history and patient home medications list prior to surgery/procedure/anesthetic and documented any changes. Performed airway and anesthesia risk assessments. Anesthesia Type Anesthesia Type: General Anesthesia Focused Assessment* Temperature: 97.7 F Pulse Rate: 74 Blood Pressure: 132/74 Respiratory Rate: 14 Pulse Ox: 98 Airway Assessment Mouth opens: >3 cm Mallampati Score: II Focused Labs Anesthesia Preop lab: CBC WBC 7.5 K/mm3 (4.4-11.0) 09/21/24 09:09/21/24 RBC 3.59 M/mm3 (4.6-6.2) L 09/21/24 09:09/21/24 Hgb 11.7 g/dL (13.0-16.5) L 09/21/24 09:09/21/24 Hct 33.9 % (40-54) L 09/21/24 09:09/21/24 Plt Count 185 K/mm3 (150-450) 09/21/24 09:09/21/24 CHEMISTRY Potassium 3.8 mmol/L (3.3-5.1) 09/21/24 09:09/21/24 Sodium 140 mmol/L (133-145) 09/21/24 09:09/21/24 Magnesium 1.5 mg/dL (1.6-2.6) L 04/11/22 09:04/11/22 BUN 28 mg/dL (4-19) H 09/21/24 09:09/21/24 Creatinine 1.76 mg/dL (0.70-1.20) H 09/21/24 09:31 09/21/24 Glucose 102 mg/dL (70-99) H 09/21/24 09:09/21/24 TSH 1.70 uIU/mL (0.358-3.74) 03/25/23 13:47 10/02/23 COAG Pre-Assessment Diagnosis/Proposed Procedure Planned Operative Procedure(s): CYSTO, INCISION OF PROSTATE WITH BOTOX INJECTION Anesthesia History 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 When Was Last Pacemaker Check QUESTION #4 FULL TEXT: You/Your Family Experience fever (hyperthermia) with Anesthesia Last Oral Intake Last Oral intake: Last Oral Intake NPO since 20:00 09/30/24 07:52 Meds taken in AM with sips of Yes 09/30/24 07:52 water? Meds patient instructed to take am of surgery PONV PONV - optical lab technician: PONV - optical lab technician Female No 09/17/24 14:42 HX of Motion Sickness No 09/17/24 14:42 HX of N/V After Surgery No 09/17/24 14:42 Non-Smoker Yes 09/17/24 14:42 Duration of Surgery greater No 09/17/24 14:42 than 60 minutes Number of Risk Factors 1 09/17/24 14:42 PONV Score Low Risk 09/17/24 14:42 Height & Weight Height & Weight: Anesthesia: Height & Weight Height 5 ft 3 in 09/30/24 07:52 Weight: 87 kg 09/30/24 07:52 Body Mass Index (BMI) 34.0 09/30/24 07:52 Respiratory Assessment Respiratory Assessment - optical lab technician: Respiratory Tract Infection Hx - optical lab technician Hx Respiratory Tract Infection No 09/17/24 14:42 STOP Sleep Apnea STOP Sleep Apnea - optical lab technician: STOP Sleep Apnea - optical lab technician Hx Hypertension Yes: CONTROLLED WITH MED 09/17/24 14:42 Hx Sleep Apnea No 09/17/24 14:42 CPAP No 09/17/24 14:42 BIPAP No 09/17/24 14:42 Do you snore loudly (louder No 09/17/24 14:42 than talking or can be heard Do you often feel tired/ No 09/17/24 14:42 fatigued/ sleepy during daytime? Has anyone observed you stop No 09/17/24 14:42 breathing during sleep? STOP Results Negative 09/17/24 14:42 QUESTION #5 FULL TEXT : Do you snore loudly (louder than talking or can be heard through closed doors)? 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 Specify any problems Hx of Preganancy in last 3 N/A 09/17/24 14:42 Months Nurse Filling Out Transfusion [facility] 09/17/24 14:42 & Questions: Date: 09/17/24 09/17/24 14:42 Time: 14:50 09/17/24 14:42 Patient unable to answer at this time (ie. confused, unrespo /Reproduction History /Reproductive History - optical lab technician: /Reproductive Hx- optical lab technician Hx Now No 09/17/24 14:42 Gestational Age (in weeks): EDC: Hx Hx Para Hx Section SAB No 06/15/22 09:20 Active Medications Active Medications: Current Medications Generic Name Dose Route Start Last Admin Trade Name Freq PRN Reason Stop Dose Admin Cefazolin Sodium 2 gm/ N/A 20 mls @ 400 mls/hr 09/30/24 09:45 IV 09/30/24 09:47 PREOP ONE Sodium Chloride 1,000 mls @ 15 mls/hr 09/30/24 07:35 09/30/24 08:14 IV 15 mls/hr .Q48H LATASHA Administration PFSH Medical History Cancer Bladder disease History of renal disease High cholesterol Wears glasses Depression Anxiety Ambulates with cane Arthritis Prostate disease Low iron Back pain Injury of head and neck Syncope Difficulty swallowing Gastric reflux Non-smoker Shortness of breath on exertion History of edema History of echocardiogram History of stress test Cardiology follow-up encounter Hypertension Home Medications ?Medication ?Instructions ?Recorded ?Last Taken ?Type escitalopram oxalate 20 mg tablet 20 mg PO QHS 06/14/15 06/19/22 History losartan 100 1 tab PO DAILY 06/14/15 06/19/22 History mg-hydrochlorothiazide 25 mg tablet (Hyzaar) psyllium husk (aspartame) 3.4 gram 1 packet PO QHS 06/14/15 06/19/22 History oral powder packet (Metamucil Fiber Singles) simvastatin 40 mg tablet 40 mg PO QODAY 06/14/15 06/19/22 History omeprazole 40 mg capsule,delayed 40 mg PO DAILY 06/15/22 09/30/24 05:00 History release propranolol 10 mg tablet 10 mg PO DAILY 06/15/22 09/30/24 05:00 History megestrol 20 mg tablet 20 mg PO BID 03/21/23 Unknown History hydrocodone-acetaminophen 5-325mg 2 tab PO Q8H 09/16/24 Unknown History 5mg-325mg mirtazapine 15 mg tablet 15 mg PO QHS 09/16/24 Unknown History Allergy/AdvReac Type Severity Reaction Status Date / Time No Known Allergies Allergy Verified 09/30/24 07:50 Surgical History Hx of colonoscopy Hx of right cataract extraction Hx of left cataract extraction Hx of cystoscopy Hx of umbilical hernia repair Hx of arthroscopic knee surgery Hx of hemorrhoidectomy Hx of appendectomy Social History Smoking Status: Never smoker Review of Systems (Anesthesia) ROS Narrative System reviewed and no additional complaints, except as documented.
--- NOTE | 2024-09-30 09:58 | PCM.HP.STD ---
HPI - General General Date of Service: 09/30/24 Chief Complaint: Urge incontinence and bladder neck stenosis HPI Narrative TRISTON OSORIO, is a 89 M who presents for injection of Botox in the bladder to help with urge incontinence and also resection of the bladder neck PFS Medical History Cancer Bladder disease History of renal disease High cholesterol Wears glasses Depression Anxiety Ambulates with cane Arthritis Prostate disease Low iron Back pain Injury of head and neck Syncope Difficulty swallowing Gastric reflux Non-smoker Shortness of breath on exertion History of edema History of echocardiogram History of stress test Cardiology follow-up encounter Hypertension Home Medications ?Medication ?Instructions ?Recorded ?Last Taken ?Type escitalopram oxalate 20 mg tablet 20 mg PO QHS 06/14/15 06/19/22 History losartan 100 1 tab PO DAILY 06/14/15 06/19/22 History mg-hydrochlorothiazide 25 mg tablet (Hyzaar) psyllium husk (aspartame) 3.4 gram 1 packet PO QHS 06/14/15 06/19/22 History oral powder packet (Metamucil Fiber Singles) simvastatin 40 mg tablet 40 mg PO QODAY 06/14/15 06/19/22 History omeprazole 40 mg capsule,delayed 40 mg PO DAILY 06/15/22 09/30/24 05:00 History release propranolol 10 mg tablet 10 mg PO DAILY 06/15/22 09/30/24 05:00 History megestrol 20 mg tablet 20 mg PO BID 03/21/23 Unknown History hydrocodone-acetaminophen 5-325mg 2 tab PO Q8H 09/16/24 Unknown History 5mg-325mg mirtazapine 15 mg tablet 15 mg PO QHS 09/16/24 Unknown History Allergy/AdvReac Type Severity Reaction Status Date / Time No Known Allergies Allergy Verified 09/30/24 07:50 Surgical History Hx of colonoscopy Hx of right cataract extraction Hx of left cataract extraction Hx of cystoscopy Hx of umbilical hernia repair Hx of arthroscopic knee surgery Hx of hemorrhoidectomy Hx of appendectomy Social History Smoking Status: Never smoker Vital Signs Vital Signs Vital Signs: 09/30/24 07:52 09/30/24 07:52 09/30/24 08:54 Temperature 97.7 F L 97.7 F L Temperature Source Temporal Pulse Rate 74 74 Respiratory Rate 14 14 Respiratory Pattern Normal Blood Pressure 132/74 H 132/74 H Blood Pressure Mean 93 Blood Pressure Source Monitor Blood Pressure Position Semi-Fowlers Blood Pressure Location Right Arm Pulse Ox 98 98 Oxygen Delivery Method Room Air Weight Weight: 87 kg Body Mass Index (BMI) 34.0 Results Lab / Micro Data 09/21/24 09:31 09/21/24 09:31
--- NOTE | 2024-09-30 09:59 | PCM.DC ---
Discharge Instructions Diet Discharge Diet: No restrictions DC O2, CPAP, BIPAP needs Home O2 Discharge instructions: No Dressing / Incision Discharge Activity: Return to Normal Activity and May Not Drive (while taking narcotic pain medications.) Dressing / Incision Call your doctor if you observe: Fever of 101 or Higher Catheter: Gomez to leg bag and Gomez to large bag Drain: [place] Follow Up Care Please Follow Up With: Dylan Hein MD When: Call [phone] for an appointment Test Results: Test results from this visit will be discussed in further detail at your follow-up appointment, if applicable. Discharge Plan Admission Primary Reason for Your Visit: botox, incision of bladder neck Attending Provider: Dylan Hein Primary Care Provider: Rodrigo Benoit Instructions Print Language: Welsh Discharge Orders/Prescriptions Prescriptions: No Action megestrol 20 mg tablet 20 mg PO BID simvastatin 40 MG tablet 40 mg PO QODAY Patient Comments: CHOLESTEROL losartan-hydrochlorothiazide [Hyzaar] 1 TAB tablet 1 tab PO DAILY Patient Comments: BLOOD PRESSURE escitalopram oxalate 20 MG tablet 20 mg PO QHS Patient Comments: DEPRESSION Metamucil Fiber Singles 1 PACKET powder in packet 1 packet PO QHS Patient Comments: CONSTIPATION omeprazole 40 mg Capsule,Delayed Release(Dr/Ec) 40 mg PO DAILY propranolol 10 mg Tablet 10 mg PO DAILY mirtazapine 15 mg tablet 15 mg PO QHS Patient Comments: [NO ORIGINAL SIG] hydrocodone-acetaminophen 5-325 mg tablet 2 tab PO Q8H Other Ambulatory Orders: 12 Lead EKG (Routine) Timeframe: 20240921 Location: None Selected Ordered By: Dr. Jacobo Blanco Referrals / Follow Up: Rodrigo Benoit DO [Primary Care Provider] - Disposition Disposition (needs filled in before D/C Order can be placed): Home, Self Care
[2024-09-30] MEDS: Cefazolin 2 GM in Syringe IV (10:02)
--- NOTE | 2024-09-30 10:17 | PCM.OPRPT ---
Operative Report (Standard) Operative Information Date of Procedure: 09/30/24 Pre-Operative Diagnosis: Bladder neck contracture and overactive bladder and urge incontinence Post-Operative Diagnosis: The same Surgery/Procedure Performed: Cystoscopy injection of Botox in the bladder 100 units, transurethral incision of a bladder neck contracture using the thulium laser rail doweling machine operator: No Type of Anesthesia: General RN Documented Start/Stop Times: Operation Date: 09/30/24 09:45 Case Time Into Pre-Op 09/30/24 07:32 Out of Pre-Op 09/30/24 09:46 Procedure Start Time: 10:04 Procedure Stop Time: 10:17 Select all DRAINS/GRAFTS/IMPLANTS that apply: Drains Drain details: 20 Tristanian Gomez catheter Estimated Blood Loss: Minimal Specimen collected: No Description of surgery: Indication this is an 89-year-old gentleman he has a history of TURP in the past he has had a lot of difficulties recently with urination and bladder control and urge incontinence on cystoscopy is found to have a bladder neck contracture that is restricting flow and a very trabeculated bladder so organ to proceed with an incision of the bladder neck and also injection of Botox into the bladder. Patient was taken back to the operating room after smooth induction of anesthesia he was placed in dorsolithotomy position. The penis testicles prepped and draped used to fashion within the bladder with a 21 Tristanian rigid cystourethroscope the entire length of the urethra was free of any strictures or scar tissue the sphincter was quite tight when I went through with this 21 scope was able to get through and then once again inside the bladder we used the Botox it was prepared to 100 units and 10 cc of normal saline and we injected in 10 sites in the back of the bladder 1 cc per site for total of 100 units given into the bladder after the Botox was given then I pulled back to the bladder neck decided to use a 965 thulium laser fiber into incise the bladder neck so then I used the laser to then cut at the 5 o'clock position on the patient's left side cut this bladder neck wide open and then I cut it at the 7:00 at the right side position and cut the bladder neck wide open at the 7 o'clock position after both sides with laser open there was no bleeding I then placed a 20 Tristanian catheter into the bladder prior to plate placed in the catheter we did a flow test had a nice wide open flow. But sphincter was intact in good position. Put a 20 Tristanian catheter in the bladder to allow it to heal and he will go home with a catheter today to follow-up with next week in the office like Saturday for catheter removal. Surgical Findings: Bladder neck contracture and heavily trabeculated bladder Complications Complications: No Admit VTE Documentation VTE Present on Admission: No VTE Mechan Device Prophylaxis: SCD's VTE Pharm Prophylaxis ordered?: No
[2024-09-30] MEDS: Botulinum Toxin A 100 Units Vial IJ (10:24)
[2024-09-30] MEDS: 0.9% Normal Saline (Pres. free 10 ML Vial (10:25)
--- NOTE | 2024-09-30 10:34 | PCM.POST.ANE ---
Anesthesia: Postop Eval I Current Vital Signs Temperature: 98.1 F Pulse Rate: 74 Blood Pressure: 137/106 Respiratory Rate: 16 Pulse Ox: 95 Oxygen Delivery Method: Room Air Assessment Airway patent: Yes Spontaneous unlabored respirations: Yes Mental status: Awake nausea: No Vomiting: No Anesthesia Complication: No Fluid Hydration Crystalloid volume administer (ml): 500 Total IV fluid infused: 500 Progress Note Anesthesia document: Postop Eval 1 completed: Yes
--- NOTE | 2024-09-30 11:09 | POSTOPAN2_ITS ---
Anesthesia Postop Eval I Sum Postop Eval Completion status Anesthesia document: Postop Eval 1 completed: Yes Anesthesia Postop Eval I Summary Anesthesia Postop Eval I Summary: Anesthesia Postop Eval I: Assessment Summary Airway patent Yes 09/30/24 10:35 RENTAL [email or web address] Spontaneous unlabored Yes 09/30/24 10:35 RENTAL [email or web address] respirations Mental status Awake 09/30/24 10:35 RENTAL [email or web address] nausea No 09/30/24 10:35 RENTAL COORDINATOR.[email or web address] Vomiting No 09/30/24 10:35 RENTAL [email or web address] Anesthesia Postop Eval I: Fluid Summary Crystalloid volume administer 500 09/30/24 10:35 RENTAL [email or web address] (ml) Colloids volume administered ( ml) Blood Product volume administered (ml) Total IV fluid infused 500 09/30/24 10:35 RENTAL COORDINATOR.[email or web address] Anesthesia Postop Eval I: Summary Notes Anesthesia Complication No 09/30/24 10:35 RENTAL [email or web address] Anesthesia Complication Comment: Post-operative progress note Anesthesia: Postop Eval II Evaluation Mental status: Awake Pain Level: 1 nausea: No Vomiting: No
--- NOTE | 2024-09-30 11:09 | PCM.POSTANE2 ---
Anesthesia Postop Eval I Sum Postop Eval Completion status Anesthesia document: Postop Eval 1 completed: Yes Anesthesia Postop Eval I Summary Anesthesia Postop Eval I Summary: Anesthesia Postop Eval I: Assessment Summary Airway patent Yes 09/30/24 10:35 CALCULATING MACHINE MECHANIC.[email or web address] Spontaneous unlabored Yes 09/30/24 10:35 CALCULATING MACHINE MECHANIC.JDEF respirations Mental status Awake 09/30/24 10:35 CALCULATING MACHINE MECHANIC.JDEF nausea No 09/30/24 10:35 CALCULATING MACHINE MECHANIC.JDEF Vomiting No 09/30/24 10:35 CALCULATING MACHINE MECHANIC.JDEF Anesthesia Postop Eval I: Fluid Summary Crystalloid volume administer 500 09/30/24 10:35 CALCULATING MACHINE MECHANIC.JDEF (ml) Colloids volume administered ( ml) Blood Product volume administered (ml) Total IV fluid infused 500 09/30/24 10:35 CALCULATING MACHINE MECHANIC.JDEF Anesthesia Postop Eval I: Summary Notes Anesthesia Complication No 09/30/24 10:35 CALCULATING MACHINE MECHANIC.JDEF Anesthesia Complication Comment: Post-operative progress note Anesthesia: Postop Eval II Evaluation Mental status: Awake Pain Level: 1 nausea: No Vomiting: No
== END 2024-09-30 13:14 | disposition home or self-care (01) ==
LOC: SDC 07:27 → AC 07:28
PROVIDERS: Anesthesiology; PCP Family Medicine; Referring Provider Urology; Visit Provider Urology
PROC: 0T7D8ZZ Dilation of Urethra, Via Natural or Artificial Opening Endoscopic (ICD-10-PCS; CPT 52276; principal; 2024-09-30 09:35)
DX: N32.0 Bladder-neck obstruction (principal); N39.41 Urge incontinence; E78.00 Pure hypercholesterolemia, unspecified; N32.89 Other specified disorders of bladder; N32.81 Overactive bladder; K21.9 Gastro-esophageal reflux disease without esophagitis; I10 Essential (primary) hypertension; Z79.899 Other long term (current) drug therapy
CPT/HCPCS: 52275; 52287; 00910; 36415; 80048; 85027; 93005; J0585; J2405

== ENCOUNTER → 2025-04-08 | Outpatient (CLI) | payer MEDICARE, SELFPAY ==
[2025-04-08 17:21] LABS: PSA,Total- Diagnostic 0.20 ng/mL (0.00-4.00)
== END | disposition home or self-care (01) ==
LOC: LAB 15:40
PROVIDERS: PCP Family Medicine; Referring Provider Urology; Visit Provider Urology
DX: C61 Malignant neoplasm of prostate (principal)
CPT/HCPCS: 36415; 84153